=== PATIENT | female | born 1935 | race Caucasian/White ===

== ENCOUNTER → 2020-10-09 | Outpatient (CLI) | payer MEDICARE ==
[2017-07-28 10:56] VITALS: BP 125/52
[~2020-10-09] MED LIST: ASPI-482 PO; ASPI-493 PO; CALC500T54 PO; CHOL200044 PO; DOCU50CA9 PO; FISH1CAP PO; HYDR-2765 PO; IBUP100T7 PO; MAGN400C PO; MULT-658 PO; NAPR220T70 PO
--- NOTE | 2020-10-09 18:55 | RAD ---
EXAM: NM PET/CT SKULL BASE TO MID THIGH EXAM DATE: 10/09/2020 INDICATION: Lung mass RADIOPHARMACEUTICAL: 12.5 mCi of F-18 Fluorodeoxyglucose (FDG) I.V. via the left forearm. TECHNIQUE: Patient weight: 127 pounds. Following at least four-hour fasting, the patient's blood gluc ose was 76 mg/dl. Approximately one and a half hours after administration of FDG, overlapping emissi on scanning was performed from the orbital meatal line through the pelvis. A low-dose CT was perform ed for attenuation correction purposes and anatomic localization. Fused images of PET and CT were rev iewed. Any standardized uptake values (SUV) reported are maximum values within a volume region of in terest, expressed in gm/ml. COMPARISON: Report on a chest CT without IV contrast 08/31/2020 FINDINGS: PET: Left apical spiculated nodule with pleural retraction and associated traction bronchiectasis shows ab normal FDG uptake to max SUV of 5.03. No abnormal FDG uptake in the mediastinum. The background media stinal uptake is 2.44. There is subtle increased FDG uptake at the gastroesophageal junction to max SUV of 3.08. There is otherwise no abnormal FDG uptake identified in the included field of view. For reference, ba ckground uptake in the liver is 2.81. CT: In the head and neck, bilateral carotid calcifications are present. Patient is edentulous and has ful l replacement prostheses. Thyroid shows mild heterogeneity in density but no discrete nodules or mas ses. No cervical adenopathy seen on noncontrast CT. In the chest, upper lobe predominant panlobular emphysema is present, with the irregularly-shaped lef t upper lobe pulmonary nodule measuring approximately 2.2 cm. There is respiratory motion artifact bu t no additional lung nodules are identified. No pneumothorax or pleural effusion. In the abdomen and pelvis, aortic calcification and tortuosity is present. Extensive colonic divertic ulosis is noted. Bones show deformity from an old, mostly healed right parasymphyseal superior and inferior pubic daphne s fracture and degenerative changes in the lumbar spine. IMPRESSION: 1. Left upper lobe pulmonary nodule shows abnormal FDG uptake to max SUV of 5.03 and is suspicious fo r a primary lung malignancy. There is no evidence of advanced locoregional disease or of distant meta stasis. 2. Mild FDG uptake at the gastroesophageal junction is nonspecific and could reflect esophagitis. Rec ommend clinical correlation. Electronically signed by: Rubi Colmenares MD (10/09/2020 6:53 PM) [id number]
== END ==
LOC: PETSC 09:30
PROVIDERS: ATTEND Internal Medicine Critical Care Medicine
DX: R91.8 Other nonspecific abnormal finding of lung field (principal); K57.30 Diverticulosis of large intestine without perforation or abscess without bleeding; J43.1 Panlobular emphysema; M47.816 Spondylosis without myelopathy or radiculopathy, lumbar region
CPT/HCPCS: 78815; A9552

== ENCOUNTER 2020-10-28 07:04 | Inpatient (IN) | payer MEDICARE ==
[~2020-10-28] VITALS: Ht 162.6 cm; Wt 57.6 kg
[2020-10-28] VITALS (24 sets, daily range): BP systolic 107–159; BP diastolic 55–94
[~2020-10-28 07:04] MED LIST changes: +MORPHINE SULFATE 4 MG/ML VIAL. IV PRN
[2020-10-28] MEDS ORDERED: LIDOCAINE WITH 8.4% SOD BICARB 3 ML DISP.SYRIN. ONE ×2 (07:48→12:05)
[2020-10-28 07:56] LABS: BASO % 0 % (0-3); EOS # 0.2 x10^3/uL (0.0-0.7); EOS % 6 % (0-3); HEMATOCRIT 39.7 % (36.0-47.0); HEMOGLOBIN 13.4 g/dL (12.0-15.5); LYMPH # 1.2 x10^3/uL (1.0-4.8); LYMPH % 35 % (24-48); MEAN CORPUSCULAR HEMOGLOBIN 32 pg (25-35); MEAN CORPUSCULAR HGB CONC 34 g/dL (31-37); MEAN CORPUSCULAR VOLUME 95 fL (79-100); MONO # 0.3 x10^3/uL (0.0-1.1); MONO % 10 % (0-9); NEUT # 1.7 x10^3/uL (1.8-7.7); NEUT % 50 % (31-73); PLATELET COUNT 121 x10^3/uL (140-400); RED BLOOD COUNT 4.17 x10^6/uL (3.50-5.40); RED CELL DISTRIBUTION WIDTH 13.3 % (11.5-14.5); WHITE BLOOD COUNT 3.4 x10^3/uL (4.0-11.0)
[2020-10-28 08:05] LABS: PROTHROMBIN TIME PATIENT 12.7 SEC (11.7-14.0)
[2020-10-28] MEDS ORDERED: OXYB5TAB33 PO (08:09)
[2020-10-28] MEDS ORDERED: SIMV10TA15 PO (08:09)
[2020-10-28] MEDS ORDERED: MIDAZOLAM HCL/PF 2 MG/2 ML VIAL. ONE ×2 (08:46→12:15)
[2020-10-28] MEDS ORDERED: fentaNYL PF VIAL 100 MCG/2 ML VIAL ONE ×2 (08:47→12:16)
[2020-10-28] MEDS ORDERED: LIDOCAINE WITH 8.4% SOD BICARB 3 ML DISP.SYRIN. IJ ONE ×2 (09:15→12:45)
[2020-10-28] MEDS ORDERED: MIDAZOLAM HCL/PF 2 MG/2 ML VIAL. IV ONE ×2 (09:15→12:45)
[2020-10-28] MEDS ORDERED: fentaNYL PF VIAL 100 MCG/2 ML VIAL IV ONE ×2 (09:15→12:45)
--- NOTE | 2020-10-28 11:44 | NUR ---
Dr. Whitlock came over to talk with patient and explained that there is a small pneumothorax present and he wants her to have a repeat chest x-ray in 2 hours. Repeat chest x-ray ordered for 1300. Patient is resting in bed and blood pressure and oxygen sats are stable, will continue to monitor.
--- NOTE | 2020-10-28 12:15 | NUR ---
After talking with patient about plan, pt noted to be c/o increasing chest discomfort and cough. Dr Whitlock ordered CXRAY to be done immediately instead of waiting until 1300. Xray showed increasing pneumothorax, decision made by Dr Whitlock to place chest tube. Inpt bed called for and Dr Florentino contacted. TASHA RENTERIA
[2020-10-28] MEDS ORDERED: SENNOSIDES 8.6 MG TABLET PO PRN (14:00)
[2020-10-28] MEDS ORDERED: DOCUSATE SODIUM 100 MG CAPSULE. PO PRN (14:00)
[2020-10-28] MEDS ORDERED: ACETAMINOPHEN 325 MG TABLET. PO PRN (14:00)
[2020-10-28] MEDS ORDERED: ONDANSETRON PF 4 MG/2 ML VIAL. IVP PRN (14:00)
[2020-10-28] MEDS ORDERED: DEXTROSE 50% 25 GM / 50ML DISP.SYRIN. IV PRN (14:00)
[2020-10-28] MEDS: HYDROcodone/APAP 5/325MG 1 TAB TABLET PO PRN ×2 (14:45→21:32)
--- NOTE | 2020-10-28 14:50 | RAD ---
CT-guided biopsy, left upper lobe pulmonary nodule 10/28/2020 10/28/2020 12:45 PM Discussion: The procedure was explained in its entirety to the patient or the patients designated client representative by a member of the treatment team, including a discussion of the risks, benefits and commonly accepted alternatives to the procedure, as well as the expected consequences of no therapy whatsoever. Discussion of the risks included, but was not limited to, those that are most frequent and those that are rare but possibly severe or life-threatening, as well as the possibility of unforeseen complications. All elements of maximal sterile barrier technique including the use of a cap, mask, sterile gown, sterile gloves, large sterile sheet, appropriate hand hygiene, and 2% chlorhexidine for cutaneous antisepsis (or acceptable alternative antiseptic per current guidelines) were followed for this procedure. The patient was placed in the supine position. A timeout procedure was performed. Anterior chest was prepped and draped as described. 1% lidocaine was administered for local anesthesia. Under intermittent CT guidance a 17-gauge needle was advanced into the nodule opacity in left upper lobe. Core biopsy samples were obtained. The needle was removed. No immediate competitions identified. Expected perilesional hemorrhage noted. Patient transferred to the recovery area in stable condition. The procedures performed under conscious sedation including continuous cardiopulmonary monitoring via dedicated sedation nurse. [id number] sedation time: 15 minutes Impression: CT-guided biopsy, left upper lobe nodule PQRS Compliance Statement: One or more of the following individualized dose reduction techniques were utilized for this examination: 1. Automated exposure control 2. Adjustment of the mA and/or kV according to patient size 3. Use of iterative reconstruction technique
--- NOTE | 2020-10-28 14:53 | RAD ---
10/28/2020 12:49 PM Procedure: Left sided thoracostomy tube placement, CT-guided Clinical Indication: LEFT PNUMOTHORAX POST BIOPSY Discussion: The procedure was explained in its entirety to the patient or the patients designated pharmaceutical representative by a member of the treatment team, including a discussion of the risks, benefits and commonly accepted alternatives to the procedure, as well as the expected consequences of no therapy whatsoever. Discussion of the risks included, but was not limited to, those that are most frequent and those that are rare but possibly severe or life-threatening, as well as the possibility of unforeseen complications. All elements of maximal sterile barrier technique including the use of a cap, mask, sterile gown, sterile gloves, large sterile sheet, appropriate hand hygiene, and 2% chlorhexidine for cutaneous antisepsis (or acceptable alternative antiseptic per current guidelines) were followed for this procedure. The left chest was prepped and draped using sterile barrier technique. 1% lidocaine was measured for local anesthesia. Under intermittent CT guidance a 5 Pan[place]ian Yueh needle was advanced to the pleural space. A guidewire was advanced into the pleural space over which following dilatation and 8 Panamanian pigtail drain was placed. Position was confirmed under CT. Air was freely aspirated. The catheter was connected to Pleur-evac device at -20 cm of water. Catheter was secured in place. No immediate complications were identified. The procedures performed under conscious sedation including continuous cardiopulmonary monitoring via dedicated sedation nurse. [id number] sedation time: 13 minutes Impression: CT-guided left thoracostomy tube placement. PQRS Compliance Statement: One or more of the following individualized dose reduction techniques were utilized for this examination: 1. Automated exposure control 2. Adjustment of the mA and/or kV according to patient size 3. Use of iterative reconstruction technique
--- NOTE | 2020-10-28 15:05 | RAD ---
Portable chest x-ray compared to similar exam dated July 27, 2017 for status post lung biopsy. FINDINGS: There is a small left apical pneumothorax. Airspace opacity in left apex may represent smal l focal parenchymal hemorrhage related to the underlying biopsy. Mild fibrotic changes are suggested in the right lung. No large pleural effusion. Heart size within normal limits. Scoliosis. IMPRESSION: 1. Small left apical pneumothorax and focal parenchymal lung hemorrhage. Electronically signed by: Louis Hall MD (10/28/2020 3:02 PM) [id number]
--- NOTE | 2020-10-28 16:04 | RAD ---
Chest single view INDICATION: Chest pain COMPARISON: Chest x-ray of earlier the same day and CT guided lung biopsy images of the same day FINDINGS: The left apical pneumothorax evident postbiopsy has markedly increased in the interval with minimal a ssociated mediastinal rightward bowing. Opacity in the left upper lobe postbiopsy remains present. Stable heart and mediastinal contours aortic tortuosity and calcification. No cardiomegaly. IMPRESSION: Interval marked increase in left post biopsy pneumothorax. Cannot exclude early findings of tension. Patient subsequently underwent an interventional procedure to decompress this pneumothorax. Please see report on the later same day CT guided drainage catheter placement. Electronically signed by: Rubi Colmenares MD (10/28/2020 4:02 PM) [id number]
--- NOTE | 2020-10-28 17:10 | PDOC1 ---
History and Physical Date of Service: DOS: DATE: 10/28/20 TIME: 16:57 Chief Complaint: Chief Complain: Pneumothorax History of Present Illness: HPI: Patient is an 84-year-old female with past medical history of longstanding smoker who came to outpatient radiology for lung biopsy. Patient underwent lung biopsy and subsequently developed a pneumothorax on the left chest. Subsequently a chest tube was placed in the anterior portion of the left side of the chest. Patient tolerated the procedure well and there was no complications. At this point patient only complains of some left-sided chest pain upon deep inspiration. Denies fevers, shortness of breath, abdominal pain, syncope or palpitations. Patient chart reviewed: Showed only admission for syncope. She had neurology and cardio work-up which was all negative and she was discharged home at that time. Past Medical/Surgical History: PMH/PSH: Past medical history: left pulmonary lung nodule, hemorrhoids Past surgical history: Cataract removal, hemorrhoidectomy Allergies: Allergies: Coded Allergies: No Known Drug Allergies (Unverified , 05/26/14) Family History: Family History: Reviewed with no relevant findings Social History: Social History: 1 pack/day smoker for 61 years. Occasional alcohol. Lives with her . Current Medications: Current Medications Current Medications Lidocaine HCl (Buffered Lidocaine 1%) 3 ml STK-MED ONCE .ROUTE ; Start 10/28/20 at 07:48; Stop 10/28/20 at 07:48; Status DC Midazolam HCl (Versed) 2 mg STK-MED ONCE .ROUTE ; Start 10/28/20 at 08:46; Stop 10/28/20 at 08:47; Status DC Fentanyl Citrate (Fentanyl 2ml Vial) 100 mcg STK-MED ONCE .ROUTE ; Start 10/28/20 at 08:47; Stop 10/28/20 at 08:47; Status DC Lidocaine HCl (Buffered Lidocaine 1%) 6 ml 1X ONCE IJ Last administered on 10/28/20at 09:09; Start 10/28/20 at 09:15; Stop 10/28/20 at 09:16; Status DC Midazolam HCl (Versed) 1 mg 1X ONCE IV Last administered on 10/28/20at 09:09; Start 10/28/20 at 09:15; Stop 10/28/20 at 09:16; Status DC Fentanyl Citrate (Fentanyl 2ml Vial) 50 mcg 1X ONCE IV Last administered on 10/28/20at 09:08; Start 10/28/20 at 09:15; Stop 10/28/20 at 09:16; Status DC Lidocaine HCl (Buffered Lidocaine 1%) 3 ml STK-MED ONCE .ROUTE ; Start 10/28/20 at 12:05; Stop 10/28/20 at 12:05; Status DC Midazolam HCl (Versed) 2 mg STK-MED ONCE .ROUTE ; Start 10/28/20 at 12:15; Stop 10/28/20 at 12:16; Status DC Fentanyl Citrate (Fentanyl 2ml Vial) 100 mcg STK-MED ONCE .ROUTE ; Start 10/28/20 at 12:16; Stop 10/28/20 at 12:16; Status DC Lidocaine HCl (Buffered Lidocaine 1%) 6 ml 1X ONCE IJ Last administered on 10/28/20at 12:42; Start 10/28/20 at 12:45; Stop 10/28/20 at 12:46; Status DC Midazolam HCl (Versed) 0.5 mg 1X ONCE IV Last administered on 10/28/20at 12:42; Start 10/28/20 at 12:45; Stop 10/28/20 at 12:46; Status DC Fentanyl Citrate (Fentanyl 2ml Vial) 25 mcg 1X ONCE IV Last administered on 10/28/20at 12:43; Start 10/28/20 at 12:45; Stop 10/28/20 at 12:46; Status DC Sennosides (Senna) 17.2 mg PRN BID PRN PO CONSTIPATION; Start 10/28/20 at 14:00 Docusate Sodium (Colace) 100 mg PRN DAILY PRN PO HARD STOOLS; Start 10/28/20 at 14:00 Ondansetron HCl (Zofran) 4 mg PRN Q6HRS PRN IVP NAUSEA/VOMITING; Start 10/28/20 at 14:00 Dextrose (Dextrose 50%-Water Syringe) 12.5 gm PRN Q15MIN PRN IV SEE COMMENTS; Start 10/28/20 at 14:00 Acetaminophen (Tylenol) 650 mg PRN Q4HRS PRN PO TEMP OVER 100.4F OR MILD PAIN; Start 10/28/20 at 14:00 Enoxaparin Sodium (Lovenox 40mg Syringe) 40 mg Q24H SQ ; Start 10/28/20 at 21:00 Acetaminophen/ Hydrocodone Bitart (Lortab 5/325) 1 tab PRN Q4HRS PRN PO MODERATE PAIN, SEVERE PAIN Last administered on 10/28/20at 14:45; Start 10/28/20 at 14:00 Morphine Sulfate (Morphine Sulfate) 2 mg PRN Q2HR PRN IV SEVERE PAIN 7-10 Last administered on 10/28/20at 14:16; Start 10/28/20 at 04:00; Stop 10/29/20 at 03:59 Active Scripts Active Reported Simvastatin 10 Mg Tablet 1 Tab PO QHS Ditropan Xl (Oxybutynin Chloride) 5 Mg Tab.er.24 1 Tab PO DAILY 30 Days Aleve (Naproxen Sodium) 220 Mg Tablet 220 Mg PO BID Anacin 400-32 Mg Tablet (Aspirin/Caffeine) 1 Each Tablet Unknown Dose PO Magnesium (Magnesium Oxide) 400 Mg Capsule 400 Mg PO Stool Softener (Docusate Sodium) 50 Mg Capsule 50 Mg PO DAILY Centrum Silver Tablet (Multivits-Min/Fa/Lycopene/Lut) 1 Each Tablet 1 Each PO DAILY Calcium (Calcium Carbonate) 500 Mg Tab.chew 500 Mg PO DAILY Fish Oil 1,200 Mg Fish Oil (Fish Oil/Dha/Epa) 1 Each Capsule 1 Each PO DAILY D3-2000 (Cholecalciferol (Vitamin D3)) 2,000 Unit Capsule 1,000 Unit PO DAILY Aspir 81 (Aspirin) 81 Mg Tablet.dr 81 Mg PO DAILY ROS: Review of Systems Review of System REVIEW OF SYSTEMS: GENERAL: Denies weakness SKIN: No bruising, hair changes or rashes. EYES: No blurred, double or loss of vision. NOSE AND THROAT: No history of nosebleeds, hoarseness or sore throat. HEART: No history of palpitations, chest pain or shortness of breath on exertion. LUNGS: Denies cough, hemoptysis, wheezing or shortness of breath. GASTROINTESTINAL: Denies changes in appetite, nausea, vomiting, diarrhea or constipation. GENITOURINARY: No history of frequency, urgency, hesitancy or nocturia. NEUROLOGIC: Denies history of numbness, tingling, or tremor. PSYCHIATRIC: No history of panic, anxiety or depression. ENDOCRINE: No history of heat or cold intolerance, polyuria or polydipsia. EXTREMITIES: Denies joint pain, pain on walking or stiffness. Physical Exam: Vital Signs: Vital Signs Date Time Temp Pulse Resp B/P (MAP) Pulse Ox O2 Delivery O2 Flow Rate FiO2 10/28/20 15:51 16 Room Air 10/28/20 14:36 97.8 66 135/56 (82) 96 97.8 10/28/20 14:16 2.0 Physcial Exam: GEN: No apparent distress. Alert and oriented HEENT: Normal cephalic, atraumatic, external auditory canals are patent EYES: Extraocular muscles are intact, pupil are equally round and reactive to light and accommodation MUSCULOSKELETAL: Well developed , well nourished, good range of motion ENDOCRINE: No thyromegaly was palpated LYMPHATICS: No cervical chain or axillary nodes were noted HEMATOPOIETIC: No bruising NECK: Supple, no JVD, no thyromegaly was noted LUNGS: Clear to auscultation in all lung p[place] without rhonchi or wheezing HEART: RRR, S!, S2 present. Peripheral pulses intact, no obvious murmurs noted ABDOMEN: Soft, nontender. Positive bowel sounds, no organomegaly, normal bowel sounds EXTREMITIES: Without clubbing, cyanosis, or edema. Pedal pulses intact. Negative Homans sign NEUROLOGIC: Normal speech and tone. A&O x 3, moves all extremities, no obvious focal deficits PSYCHIATRIC: Normal affect, normal mood. Stable SKIN: No ulcerations or rashes, good skin turgor, no jaundice VASCULAR: Good capillary refill, neurovascular bundle appears to be intact Labs: Labs: Laboratory Tests Test 10/28/20 07:15 10/28/20 07:45 SARS-CoV-2 Antigen (Rapid) Negative (NEGATIVE) White Blood Count 3.4 x10^3/uL (4.0-11.0) Red Blood Count 4.17 x10^6/uL (3.50-5.40) Hemoglobin 13.4 g/dL (12.0-15.5) Hematocrit 39.7 % (36.0-47.0) Mean Corpuscular Volume 95 fL (79-100) Mean Corpuscular Hemoglobin 32 pg (25-35) Mean Corpuscular Hemoglobin Concent 34 g/dL (31-37) Red Cell Distribution Width 13.3 % (11.5-14.5) Platelet Count 121 x10^3/uL (140-400) Neutrophils (%) (Auto) 50 % (31-73) Lymphocytes (%) (Auto) 35 % (24-48) Monocytes (%) (Auto) 10 % (0-9) Eosinophils (%) (Auto) 6 % (0-3) Basophils (%) (Auto) 0 % (0-3) Neutrophils # (Auto) 1.7 x10^3/uL (1.8-7.7) Lymphocytes # (Auto) 1.2 x10^3/uL (1.0-4.8) Monocytes # (Auto) 0.3 x10^3/uL (0.0-1.1) Eosinophils # (Auto) 0.2 x10^3/uL (0.0-0.7) Basophils # (Auto) 0.0 x10^3/uL (0.0-0.2) Prothrombin Time 12.7 SEC (11.7-14.0) Prothromb Time International Ratio 1.0 (0.8-1.1) Laboratory Tests Test 10/28/20 07:15 10/28/20 07:45 SARS-CoV-2 Antigen (Rapid) Negative (NEGATIVE) White Blood Count 3.4 x10^3/uL (4.0-11.0) Red Blood Count 4.17 x10^6/uL (3.50-5.40) Hemoglobin 13.4 g/dL (12.0-15.5) Hematocrit 39.7 % (36.0-47.0) Mean Corpuscular Volume 95 fL (79-100) Mean Corpuscular Hemoglobin 32 pg (25-35) Mean Corpuscular Hemoglobin Concent 34 g/dL (31-37) Red Cell Distribution Width 13.3 % (11.5-14.5) Platelet Count 121 x10^3/uL (140-400) Neutrophils (%) (Auto) 50 % (31-73) Lymphocytes (%) (Auto) 35 % (24-48) Monocytes (%) (Auto) 10 % (0-9) Eosinophils (%) (Auto) 6 % (0-3) Basophils (%) (Auto) 0 % (0-3) Neutrophils # (Auto) 1.7 x10^3/uL (1.8-7.7) Lymphocytes # (Auto) 1.2 x10^3/uL (1.0-4.8) Monocytes # (Auto) 0.3 x10^3/uL (0.0-1.1) Eosinophils # (Auto) 0.2 x10^3/uL (0.0-0.7) Basophils # (Auto) 0.0 x10^3/uL (0.0-0.2) Prothrombin Time 12.7 SEC (11.7-14.0) Prothromb Time International Ratio 1.0 (0.8-1.1) Images: Images CXR IMPRESSION: 1. Small left apical pneumothorax and focal parenchymal lung hemorrhage. Assessment/Plan Assessment/Plan Left apical pneumothorax status post chest tube placement Acute hypoxia Pulmonary lung nodule concerning for malignancy Admit to medicine for observation Pulmonology consult for chest tube management Ambulation for DVT prophylaxis PT OT Regular diet Full code Discussed with RN and SW Disposition chest x-ray in the morning Surrogate decision maker is the Justifications for Admission Other Justification Pneumothorax VIRAL SLOAN MD Oct 28, 2020 17:10
[2020-10-28] MEDS: ENOXAPARIN 40 MG/0.4 ML SYRINGE. SQ SCH (21:43)
[2020-10-29 03:00] VITALS: BP 117/60
[2020-10-29] MEDS: HYDROcodone/APAP 5/325MG 1 TAB TABLET PO PRN ×2 (06:05→20:24)
[2020-10-29 07:00] VITALS: BP 120/60
--- NOTE | 2020-10-29 08:16 | RAD ---
Single view chest INDICATION: Pneumothorax COMPARISON: 10/28/2020 at 11:55 AM FINDINGS: Interval placement of a pigtail pleural drainage catheter in the left hemithorax. There is marked interval decrease in size of the left pneumothorax evident previously. A small residu al peripheral apical left pneumothorax remains present, maximum depth of 1.3 cm as measured from the parietal pleura to the recently biopsied left upper lobe opacity. Stable heart and mediastinal contours showing aortic calcification and tortuosity. No pleural effusio n. The bony thorax appears intact. Included upper abdomen is unremarkable. IMPRESSION: Marked interval decrease in size of left apical pneumothorax following left pleural pigtail drainage catheter placement. There is a small residual apical pneumothorax. No evidence of tension. Electronically signed by: Rubi Colmenares MD (10/29/2020 8:14 AM) [id number]
--- NOTE | 2020-10-29 08:25 | PDOC ---
PROGRESS NOTES Date of Service: DATE: 10/29/20 TIME: 08:24 Chief Complaint Chief Complaint Images: Images CXR IMPRESSION: 1. Small left apical pneumothorax and focal parenchymal lung hemorrhage. Assessment/Plan Assessment/Plan Left apical pneumothorax status post chest tube placement Marked interval decrease in size of left apical pneumothorax following left pleural pigtail drainage catheter placement. There is a small residual apical pneumothorax. No evidence of tension. 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 Pulmonary lung nodule concerning for malignancy Left upper lobe pulmonary nodule shows abnormal FDG uptake to max SUV of 5.03 and is suspicious for a primary lung malignancy. plan Admit to medicine Pulmonology consult for chest tube management Ambulation for DVT prophylaxis PT OT Regular diet Full code Discussed with RN and SW Disposition chest x-ray in the morning Surrogate decision maker is the 3-25 WILL MONITOR ON TELE DUE TO AGE, COPD, PNEUMOTHORAX Justifications for Admission Justifications for Admission Other Justification Pneumothorax History of Present Illness History of Present Illness Chief Complaint: Chief Complain: Pneumothorax History of Present Illness: HPI: Patient is an 84-year-old female with past medical history of longstanding smoker who came to outpatient radiology for lung biopsy. Patient underwent lung biopsy and subsequently developed a pneumothorax on the left chest. Subsequently a chest tube was placed in the anterior portion of the left side of the chest. Patient tolerated the procedure well and there was no complications. At this point patient only complains of some left-sided chest pain upon deep inspiration. Denies fevers, shortness of breath, abdominal pain, syncope or palpitations. Patient chart reviewed: Showed only admission for syncope. She had neurology and cardio work-up which was all negative and she was discharged home at that time. Past Medical/Surgical History: PMH/PSH: Past medical history: left pulmonary lung nodule, hemorrhoids Past surgical history: Cataract removal, hemorrhoidectomy Allergies: Allergies: Coded Allergies: No Known Drug Allergies (Unverified , 05/26/14) Family History: Family History: Reviewed with no relevant findings Social History: Social History: 1 pack/day smoker for 61 years. Occasional alcohol. Lives with her . Current Medications: Current Medications Current Medications Lidocaine HCl (Buffered Lidocaine 1%) 3 ml STK-MED ONCE .ROUTE ; Start 10/28/20 at 07:48; Stop 10/28/20 at 07:48; Status DC Midazolam HCl (Versed) 2 mg STK-MED ONCE .ROUTE ; Start 10/28/20 at 08:46; Stop 10/28/20 at 08:47; Status DC Fentanyl Citrate (Fentanyl 2ml Vial) 100 mcg STK-MED ONCE .ROUTE ; Start at 08:47; Stop 10/28/20 at 08:47; Status DC Lidocaine HCl (Buffered Lidocaine 1%) 6 ml 1X ONCE IJ Last administered on 10/06 11/25at 09:09; Start 10/28/20 at 09:15; Stop 10/28/20 at 09:16; Status DC Midazolam HCl (Versed) 1 mg 1X ONCE IV Last administered on 10/28/20at 09:09; Start 10/28/20 at 09:15; Stop 10/28/20 at 09:16; Status DC Fentanyl Citrate (Fentanyl 2ml Vial) 50 mcg 1X ONCE IV Last administered on 10/28/20at 09:08; Start 10/28/20 at 09:15; Stop 10/28/20 at 09:16; Status DC Lidocaine HCl (Buffered Lidocaine 1%) 3 ml STK-MED ONCE .ROUTE ; Start 10/28/20 at 12:05; Stop 10/28/20 at 12:05; Status DC Midazolam HCl (Versed) 2 mg STK-MED ONCE .ROUTE ; Start 10/28/20 at 12:15; Stop 10/28/20 at 12:16; Status DC Fentanyl Citrate (Fentanyl 2ml Vial) 100 mcg STK-MED ONCE .ROUTE ; Start 10/28/20 at 12:16; Stop 10/28/20 at 12:16; Status DC Lidocaine HCl (Buffered Lidocaine 1%) 6 ml 1X ONCE IJ Last administered on 10/28/20at 12:42; Start 10/28/20 at 12:45; Stop 10/28/20 at 12:46; Status DC Midazolam HCl (Versed) 0.5 mg 1X ONCE IV Last administered on 10/28/20at 12:42; Start 10/28/20 at 12:45; Stop 10/28/20 at 12:46; Status DC Fentanyl Citrate (Fentanyl 2ml Vial) 25 mcg 1X ONCE IV Last administered on 10/28/20at 12:43; Start 10/28/20 at 12:45; Stop 10/28/20 at 12:46; Status DC Sennosides (Senna) 17.2 mg PRN BID PRN PO CONSTIPATION; Start 10/28/20 at 14:00 Docusate Sodium (Colace) 100 mg PRN DAILY PRN PO HARD STOOLS; Start 10/28/20 at 14:00 Ondansetron HCl (Zofran) 4 mg PRN Q6HRS PRN IVP NAUSEA/VOMITING; Start 10/28/20 at 14:00 Dextrose (Dextrose 50%-Water Syringe) 12.5 gm PRN Q15MIN PRN IV SEE COMMENTS; Start 10/28/20 at 14:00 Acetaminophen (Tylenol) 650 mg PRN Q4HRS PRN PO TEMP OVER 100.4F OR MILD PAIN; Start 10/28/20 at 14:00 Enoxaparin Sodium (Lovenox 40mg Syringe) 40 mg Q24H SQ ; Start 10/28/20 at 21:00 Acetaminophen/ Hydrocodone Bitart (Lortab 5/325) 1 tab PRN Q4HRS PRN PO MODERATE PAIN, SEVERE PAIN Last administered on 10/28/20at 14:45; Start 10/28/20 at 14:00 Morphine Sulfate (Morphine Sulfate) 2 mg PRN Q2HR PRN IV SEVERE PAIN 7-10 Last administered on 10/28/20at 14:16; Start 10/28/20 at 04:00; Stop 10/29/20 at 03:59 Active Scripts Active Reported Simvastatin 10 Mg Tablet 1 Tab PO QHS Ditropan Xl (Oxybutynin Chloride) 5 Mg Tab.er.24 1 Tab PO DAILY 30 Days Aleve (Naproxen Sodium) 220 Mg Tablet 220 Mg PO BID Anacin 400-32 Mg Tablet (Aspirin/Caffeine) 1 Each Tablet Unknown Dose PO Magnesium (Magnesium Oxide) 400 Mg Capsule 400 Mg PO Stool Softener (Docusate Sodium) 50 Mg Capsule 50 Mg PO DAILY Centrum Silver Tablet (Multivits-Min/Fa/Lycopene/Lut) 1 Each Tablet 1 Each PO DAILY Calcium (Calcium Carbonate) 500 Mg Tab.chew 500 Mg PO DAILY Fish Oil 1,200 Mg Fish Oil (Fish Oil/Dha/Epa) 1 Each Capsule 1 Each PO DAILY D3-2000 (Cholecalciferol (Vitamin D3)) 2,000 Unit Capsule 1,000 Unit PO DAILY Aspir 81 (Aspirin) 81 Mg Tablet. 81 Mg PO DAILY ROS: Review of Systems Review of System REVIEW OF SYSTEMS: GENERAL: Denies weakness SKIN: No bruising, hair changes or rashes. EYES: No blurred, double or loss of vision. NOSE AND THROAT: No history of nosebleeds, hoarseness or sore throat. HEART: No history of palpitations, chest pain or shortness of breath on exertion. LUNGS: Denies cough, hemoptysis, wheezing or shortness of breath. GASTROINTESTINAL: Denies changes in appetite, nausea, vomiting, diarrhea or constipation. GENITOURINARY: No history of frequency, urgency, hesitancy or nocturia. NEUROLOGIC: Denies history of numbness, tingling, or tremor. PSYCHIATRIC: No history of panic, anxiety or depression. ENDOCRINE: No history of heat or cold intolerance, polyuria or polydipsia. EXTREMITIES: Denies joint pain, pain on walking or stiffness. Vitals Vitals Vital Signs Date Time Temp Pulse Resp B/P (MAP) Pulse Ox O2 Delivery O2 Flow Rate FiO2 10/29/20 08:21 Nasal Cannula 2.0 10/29/20 07:00 97.3 67 17 120/60 (80) 92 97.3 Physical Exam Physical Exam Physcial Exam: GEN: No apparent distress. Alert and oriented HEENT: Normal cephalic, atraumatic, external auditory canals are patent EYES: Extraocular muscles are intact, pupil are equally round and reactive to light and accommodation MUSCULOSKELETAL: Well developed , well nourished, good range of motion ENDOCRINE: No thyromegaly was palpated LYMPHATICS: No cervical chain or axillary nodes were noted HEMATOPOIETIC: No bruising NECK: Supple, no JVD, no thyromegaly was noted LUNGS: Clear to auscultation in all lung [place] without rhonchi or wheezing HEART: RRR, S!, S2 present. Peripheral pulses intact, no obvious murmurs noted ABDOMEN: Soft, nontender. Positive bowel sounds, no organomegaly, normal bowel sounds EXTREMITIES: Without clubbing, cyanosis, or edema. Pedal pulses intact. Negative Homans sign NEUROLOGIC: Normal speech and tone. A&O x 3, moves all extremities, no obvious focal deficits PSYCHIATRIC: Normal affect, normal mood. Stable SKIN: No ulcerations or rashes, good skin turgor, no jaundice VASCULAR: Good capillary refill, neurovascular bundle appears to be intact Labs LABS [facility] [id number] [place] [address] Test Date: 2017-07-27 Test Time: 11:52:11 Pat Name: MINDY KAUR Department: Room: Gender: F Emergency Management Consultant: : 1935 Requested By: CAREY WILDER Order Number: [id number] Reading MD: Vidya Suresh MD Measurements Intervals [place] Rate: 59 P: 67 ME: 216 QRS: 18 QRSD: 80 T: 38 QT: 434 QTc: 434 Interpretive Statements SINUS RHYTHM possible prior anterseptal infarct Electronically Signed On 07-27-2017 20:05:13 CONTINUOUS IMPROVEMENT ANALYST by Vidya Suresh MD DICTATED and SIGNED BY: VIDYA SURESH MD DATE: 07/27/17 1152 cc: CAREY WILDER MD; ISAK EDWARDS Jr, MD ~ itral Valve MV E Velocity 94.5cm/s MV DECEL TIME 226ms MV A Velocity 122.0cm/s E/A Ratio 0.8 Pulmonary Valve PV Peak Velocity 105.8cm/s Tricuspid Valve TR P. Velocity 243cm/s RAP ESTIMATE 3mmHg TR Peak Gr. 24mmHg RVSP 27mmHg LEFT VENTRICLE The left ventricle is normal size. There is normal left ventricular wall thickness. The left ventricular systolic function is normal and the ejection fraction is within normal range. The Ejection Fraction is >70%. There is normal LV segmental wall motion. RIGHT VENTRICLE The right ventricle is normal size. There is normal right ventricular wall thickness. The right ventricular systolic function is normal. ATRIA The left atrium size is normal. The right atrium size is normal. The interatrial septum is intact with no evidence for an atrial septal defect or patent foramen ovale as noted on 2-D or Doppler imaging. AORTIC VALVE The aortic valve is mildly to moderately sclerotic. The aortic valve is trileaflet. Doppler and Color Flow revealed mild aortic regurgitation. There is no significant aortic valvular stenosis. MITRAL VALVE The mitral valve is moderately thickened. There is no evidence of mitral valve p rolapse. There is no mitral valve stenosis. Doppler and Color Flow revealed no mitral valve regurgitation noted. TRICUSPID VALVE The tricuspid valve is normal in structure and function. Doppler and Color Flow revealed mild tricuspid regurgitation. RVSP 24 mm Hg. There is no tricuspid valve stenosis. PULMONIC VALVE Doppler and Color Flow revealed no pulmonic valvular regurgitation. There is no pulmonic valvular stenosis. GREAT VESSELS The aortic root is normal in size. The ascending aorta is normal in size. The IVC is normal in size and collapses >50% with inspiration. PERICARDIAL EFFUSION There is no pleural effusion. There is no evidence of significant pericardial effusion. Critical Notification Critical Value: No <Conclusion> The left ventricular systolic function is normal and the ejection fraction is within normal range. The Ejection Fraction is >70%. There is normal LV segmental wall motion. Doppler and Color Flow revealed mild aortic regurgitation. Doppler and Color Flow revealed mild tricuspid regurgitation. RVSP 24 mm Hg. Signed by : Vidya Suresh, Electronically Approved : 07/28/2017 10:35:36 DICTATED and SIGNED BY: VIDYA SURESH MD DATE: 07/28/17 1035 CC: CLAUS SUN MD; ANOOP CISNEROS APRN; VIDYA SURESH MD; ISAK EDWARDS Jr, MD ~ T12-L1: This level was not included on the axial images. There is a shallow posterior protrusion in the right lateral recess without significant spinal stenosis. There is mild to moderate narrowing of the right neural foramen from facet and the scoliotic curvature, left neural foramen adequate. L1-L2: There is negligible posterior bulge. Spinal canal is adequate. There is minimal facet degenerative change. Left neural foramen is adequate, minimal narrowing of the right neural foramen. L2-L3: There is a shallow protrusion in right lateral recess superimposed on minimal disc osteophyte complex. There is minimal narrowing of the right lateral recess, otherwise spinal canal adequate. There is mild to moderate buckling of the ligamentum flavum on right, mild facet hypertrophic change. Left neural foramen is adequate. There is moderate to severe narrowing of the more distal right neural foramen, disc osteophyte complex near the proximal right extraforaminal L2 nerve root without displacement. Left neural foramen is adequate. L3-L4: There is moderate to severe facet degenerative change and buckling of the ligamentum flavum. There is a minimal posterior bulge. There is moderate left and mild right lateral recess stenosis, central canal overall adequate. There is mild, right greater than left neural foramina compromise. L4-L5: There is left laminectomy defect, enhancing fibrosis at laminectomy site and also in the left lateral recess laterally and anteriorly. There is mild enhancement about the descending left L5 nerve root. There is also some enhancing fibrosis about the exiting left L4 nerve root, effacement of perineural fat. There is fairly marked narrowing of the more distal left neural foramen by disc osteophyte complex and facet hypertrophic change. Right neural foramen is adequate. L5-S1: There is moderate bilateral facet hypertrophic change and mild buckling of the ligamentum flavum. Spinal canal is overall adequate. Neural foramina are adequate. There is a small Tarlov cyst on the left at the inferior aspect of S1 up to 0.7 cm. IMPRESSION: 1. There is advanced degenerative disc disease at L2-3 andL4-5 and to lesser degree at L5-S1. There is fairly prominent L4-5 endplate edema eccentric to left extending into the left L4 and L5 pedicles. Findings may be reactive in etiology assuming there is no suspicion for infection, no significant fluid signal intensity within the intervertebral disc space as would be more commonly associated infection. There has been left L4 laminectomy with enhancing fibrosis at laminectomy site and in the left lateral recess, also about the descending left L5 nerve root. 2. There is neural foramina compromise as described greatest on the left at L4-5 and on the right at L2-L3. 3. There is levoscoliosis centered upon superior lumbar spine. 4. There is variable lateral recess stenosis as described most notable the left lateral recess at L3-L4. Electronically signed by: Hank Siegel MD (Sep 02, 2014 16:17:22) DICTATED and SIGNED BY: ASA SIEGEL MD DATE: 09/02/14 1617 EXAM DATE: 10/09/2020 INDICATION: Lung mass RADIOPHARMACEUTICAL: 12.5 mCi of F-18 Fluorodeoxyglucose (FDG) I.V. via the left forearm. TECHNIQUE: Patient weight: 127 pounds. Following at least four-hour fasting, the patient's blood glucose was 76 mg/dl. Approximately one and a half hours after administration of FDG, overlapping emission scanning was performed from the orbital meatal line through the pelvis. A low-dose CT was performed for attenuation correction purposes and anatomic localization. Fused images of PET and CT were reviewed. Any standardized uptake values (SUV) reported are maximum values within a volume region of interest, expressed in gm/ml. COMPARISON: Report on a chest CT without IV contrast 08/31/2020 FINDINGS: PET: Left apical spiculated nodule with pleural retraction and associated traction bronchiectasis shows abnormal FDG uptake to max SUV of 5.03. No abnormal FDG uptake in the mediastinum. The background mediastinal uptake is 2.44. There is subtle increased FDG uptake at the gastroesophageal junction to max SUV of 3.08. There is otherwise no abnormal FDG uptake identified in the included field of view. For reference, background uptake in the liver is 2.81. CT: In the head and neck, bilateral carotid calcifications are present. Patient is edentulous and has full replacement prostheses. Thyroid shows mild heterogeneity in density but no discrete nodules or masses. No cervical adenopathy seen on noncontrast CT. In the chest, upper lobe predominant panlobular emphysema is present, with the irregularly-shaped left upper lobe pulmonary nodule measuring approximately 2.2 cm. There is respiratory motion artifact but no additional lung nodules are identified. No pneumothorax or pleural effusion. In the abdomen and pelvis, aortic calcification and tortuosity is present. Extensive colonic diverticulosis is noted. Bones show deformity from an old, mostly healed right parasymphyseal superior and inferior pubic ramus fracture and degenerative changes in the lumbar spine. IMPRESSION: 1. Left upper lobe pulmonary nodule shows abnormal FDG uptake to max SUV of 5.03 and is suspicious for a primary lung malignancy. There is no evidence of advanced locoregional disease or of distant metastasis. 2. Mild FDG uptake at the gastroesophageal junction is nonspecific and could reflect esophagitis. Recommend clinical correlation. Electronically signed by: Victorino Colmenares MD (10/09/2020 6:53 PM) [id number] DICTATED and SIGNED BY: VICTORINO COLMENARES MD DATE: 10/09/20 [id number] PATIENT: MINDY KAUR AACCOUNT: [id number] : 1935 LOCATION: [address] [place] [address] AGE: 84 SEX: F EXAM STATUS: ADM IN ORD. PHYSICIAN: NOHEMI TAVERAS MD REASON: post left lung biopsy in IR PROCEDURE: PORTABLE CHEST 1V Portable chest x-ray compared to similar exam dated July 27, 2017 for status post lung biopsy. FINDINGS: There is a small left apical pneumothorax. Airspace opacity in left apex may represent small focal parenchymal hemorrhage related to the underlying biopsy. Mild fibrotic changes are suggested in the right lung. No large pleural effusion. Heart size within normal limits. Scoliosis. IMPRESSION: 1. Small left apical pneumothorax and focal parenchymal lung hemorrhage. Electronically signed by: Louis Brown MD (10/28/2020 3:02 PM) [id number] DICTATED and SIGNED BY: LOUIS BROWN MD DATE: 10/28/[id number]-guided biopsy, left upper lobe pulmonary nodule 10/28/2020 10/28/2020 12:45 PM Discussion: The procedure was explained in its entirety to the patient or the patients designated medical service representative by a member of the treatment team, including a discussion of the risks, benefits and commonly accepted alternatives to the procedure, as well as the expected consequences of no therapy whatsoever. Discussion of the risks included, but was not limited to, those that are most frequent and those that are rare but possibly severe or life-threatening, as well as the possibility of unforeseen complications. All elements of maximal sterile barrier technique including the use of a cap, mask, sterile gown, sterile gloves, large sterile sheet, appropriate hand hygiene, and 2% chlorhexidine for cutaneous antisepsis (or acceptable alternative antiseptic per current guidelines) were followed for this procedure. The patient was placed in the supine position. A timeout procedure was performed. Anterior chest was prepped and draped as described. 1% lidocaine was administered for local anesthesia. Under intermittent CT guidance a 17-gauge needle was advanced into the nodule opacity in left upper lobe. Core biopsy samples were obtained. The needle was removed. No immediate competitions identified. Expected perilesional hemorrhage noted. Patient transferred to the recovery area in stable condition. The procedures performed under conscious sedation including continuous cardiopulmonary monitoring via dedicated sedation nurse. [id number] sedation time: 15 minutes Impression: CT-guided biopsy, left upper lobe nodule PQRS Compliance Statement: One or more of the following individualized dose reduction techniques were utilized for this examination: 1. Automated exposure control 2. Adjustment of the mA and/or kV according to patient size 3. Use of iterative reconstruction technique DICTATED and SIGNED BY: NOHEMI TAVERAS MD DATE: 10/28/20 [id number] Single view chest INDICATION: Pneumothorax COMPARISON: 10/28/2020 at 11:55 AM FINDINGS: Interval placement of a pigtail pleural drainage catheter in the left hemithorax. There is marked interval decrease in size of the left pneumothorax evident previously. A small residual peripheral apical left pneumothorax remains present, maximum depth of 1.3 cm as measured from the parietal pleura to the recently biopsied left upper lobe opacity. Stable heart and mediastinal contours showing aortic calcification and tortuosity. No pleural effusion. The bony thorax appears intact. Included upper abdomen is unremarkable. IMPRESSION: Marked interval decrease in size of left apical pneumothorax following left pleural pigtail drainage catheter placement. There is a small residual apical p neumothorax. No evidence of tension. Electronically signed by: Victorino Colmenares MD (10/29/2020 8:14 AM) [id number] DICTATED and SIGNED BY: VICTORINO COLMENARES MD DATE: 10/29/20 [id number] 0 Comment Review of Relevant I have reviewed the following items aylin (where applicable) has been applied. Labs Laboratory Tests Test 10/28/20 07:15 10/28/20 07:45 SARS-CoV-2 Antigen (Rapid) Negative (NEGATIVE) White Blood Count 3.4 x10^3/uL (4.0-11.0) Red Blood Count 4.17 x10^6/uL (3.50-5.40) Hemoglobin 13.4 g/dL (12.0-15.5) Hematocrit 39.7 % (36.0-47.0) Mean Corpuscular Volume 95 fL (79-100) Mean Corpuscular Hemoglobin 32 pg (25-35) Mean Corpuscular Hemoglobin Concent 34 g/dL (31-37) Red Cell Distribution Width 13.3 % (11.5-14.5) Platelet Count 121 x10^3/uL (140-400) Neutrophils (%) (Auto) 50 % (31-73) Lymphocytes (%) (Auto) 35 % (24-48) Monocytes (%) (Auto) 10 % (0-9) Eosinophils (%) (Auto) 6 % (0-3) Basophils (%) (Auto) 0 % (0-3) Neutrophils # (Auto) 1.7 x10^3/uL (1.8-7.7) Lymphocytes # (Auto) 1.2 x10^3/uL (1.0-4.8) Monocytes # (Auto) 0.3 x10^3/uL (0.0-1.1) Eosinophils # (Auto) 0.2 x10^3/uL (0.0-0.7) Basophils # (Auto) 0.0 x10^3/uL (0.0-0.2) Prothrombin Time 12.7 SEC (11.7-14.0) Prothromb Time International Ratio 1.0 (0.8-1.1) Medications Current Medications Lidocaine HCl (Buffered Lidocaine 1%) 3 ml STK-MED ONCE .ROUTE ; Start 10/28/20 at 07:48; Stop 10/28/20 at 07:48; Status DC Midazolam HCl (Versed) 2 mg STK-MED ONCE .ROUTE ; Start 10/28/20 at 08:46; Stop 10/28/20 at 08:47; Status DC Fentanyl Citrate (Fentanyl 2ml Vial) 100 mcg STK-MED ONCE .ROUTE ; Start 10/28/20 at 08:47; Stop 10/28/20 at 08:47; Status DC Lidocaine HCl (Buffered Lidocaine 1%) 6 ml 1X ONCE IJ Last administered on 10/28/20at 09:09; Start 10/28/20 at 09:15; Stop 10/28/20 at 09:16; Status DC Midazolam HCl (Versed) 1 mg 1X ONCE IV Last administered on 10/28/20at 09:09; Start 10/28/20 at 09:15; Stop 10/28/20 at 09:16; Status DC Fentanyl Citrate (Fentanyl 2ml Vial) 50 mcg 1X ONCE IV Last administered on 10/28/20at 09:08; Start 10/28/20 at 09:15; Stop 10/28/20 at 09:16; Status DC Lidocaine HCl (Buffered Lidocaine 1%) 3 ml STK-MED ONCE .ROUTE ; Start 10/28/20 at 12:05; Stop 10/28/20 at 12:05; Status DC Midazolam HCl (Versed) 2 mg STK-MED ONCE .ROUTE ; Start 10/28/20 at 12:15; Stop 10/28/20 at 12:16; Status DC Fentanyl Citrate (Fentanyl 2ml Vial) 100 mcg STK-MED ONCE .ROUTE ; Start 10/28/20 at 12:16; Stop 10/28/20 at 12:16; Status DC Lidocaine HCl (Buffered Lidocaine 1%) 6 ml 1X ONCE IJ Last administered on 10/28/20at 12:42; Start 10/28/20 at 12:45; Stop 10/28/20 at 12:46; Status DC Midazolam HCl (Versed) 0.5 mg 1X ONCE IV Last administered on 10/28/20at 12:42; Start 10/28/20 at 12:45; Stop 10/28/20 at 12:46; Status DC Fentanyl Citrate (Fentanyl 2ml Vial) 25 mcg 1X ONCE IV Last administered on 10/28/20at 12:43; Start 10/28/20 at 12:45; Stop 10/28/20 at 12:46; Status DC Sennosides (Senna) 17.2 mg PRN BID PRN PO CONSTIPATION; Start 10/28/20 at 14:00 Docusate Sodium (Colace) 100 mg PRN DAILY PRN PO HARD STOOLS; Start 10/28/20 at 14:00 Ondansetron HCl (Zofran) 4 mg PRN Q6HRS PRN IVP NAUSEA/VOMITING; Start 10/28/20 at 14:00 Dextrose (Dextrose 50%-Water Syringe) 12.5 gm PRN Q15MIN PRN IV SEE COMMENTS; Start 10/28/20 at 14:00 Acetaminophen (Tylenol) 650 mg PRN Q4HRS PRN PO TEMP OVER 100.4F OR MILD PAIN; Start 10/28/20 at 14:00 Enoxaparin Sodium (Lovenox 40mg Syringe) 40 mg Q24H SQ Last administered on 10/28/20at 21:43; Start 10/28/20 at 21:00 Acetaminophen/ Hydrocodone Bitart (Lortab 5/325) 1 tab PRN Q4HRS PRN PO MODERATE PAIN, SEVERE PAIN Last administered on 10/29/20at 06:05; Start 10/28/20 at 14:00 Morphine Sulfate (Morphine Sulfate) 2 mg PRN Q2HR PRN IV SEVERE PAIN 7-10 Last administered on 10/28/20at 14:16; Start 10/28/20 at 04:00; Stop 10/29/20 at 03:59; Status DC Active Scripts Active Reported Simvastatin 10 Mg Tablet 1 Tab PO QHS Ditropan Xl (Oxybutynin Chloride) 5 Mg Tab.er.24 1 Tab PO DAILY 30 Days Aleve (Naproxen Sodium) 220 Mg Tablet 220 Mg PO BID Anacin 400-32 Mg Tablet (Aspirin/Caffeine) 1 Each Tablet Unknown Dose PO Magnesium (Magnesium Oxide) 400 Mg Capsule 400 Mg PO Stool Softener (Docusate Sodium) 50 Mg Capsule 50 Mg PO DAILY Centrum Silver Tablet (Multivits-Min/Fa/Lycopene/Lut) 1 Each Tablet 1 Each PO DAILY Calcium (Calcium Carbonate) 500 Mg Tab.chew 500 Mg PO DAILY Fish Oil 1,200 Mg Fish Oil (Fish Oil/Dha/Epa) 1 Each Capsule 1 Each PO DAILY D3-2000 (Cholecalciferol (Vitamin D3)) 2,000 Unit Capsule 1,000 Unit PO DAILY Aspir 81 (Aspirin) 81 Mg Tablet.dr 81 Mg PO DAILY Vitals/I & O Vital Sign - Last 24 Hours 10/28/20 10/28/20 10/28/20 10/28/20 08:25 08:54 08:59 09:04 Pulse 66 72 67 Resp 13 12 8 Pulse Ox 100 96 97 O2 Delivery Room Air Nasal Cannula Nasal Cannula O2 Flow Rate 2.0 2.0 10/28/20 10/28/20 10/28/20 10/28/20 09:08 09:09 09:19 09:34 Pulse 70 69 64 Resp 8 8 9 14 Pulse Ox 97 97 96 99 O2 Delivery Nasal Cannula Nasal Cannula Room Air Room Air O2 Flow Rate 2.0 2.0 10/28/20 10/28/20 10/28/20 10/28/20 09:49 10:04 10:20 10:35 Pulse 59 62 68 62 Resp 14 11 19 17 Pulse Ox 100 100 100 100 O2 Delivery Room Air Nasal Cannula Nasal Cannula Nasal Cannula O2 Flow Rate 2.0 2.0 2.0 10/28/20 10/28/20 10/28/20 10/28/20 10:50 11:30 12:21 12:26 Pulse 66 75 72 73 Resp 17 17 10 7 Pulse Ox 98 92 94 94 O2 Delivery Nasal Cannula Room Air Nasal Cannula Nasal Cannula O2 Flow Rate 2.0 2.0 2.0 10/28/20 10/28/20 10/28/20 10/28/20 12:30 12:33 12:37 12:43 Pulse 63 64 62 Resp 8 14 15 15 Pulse Ox 99 100 99 95 O2 Delivery Nasal Cannula Nasal Cannula Nasal Cannula Nasal Cannula O2 Flow Rate 2.0 2.0 2.0 2.0 10/28/20 10/28/20 10/28/20 10/28/20 13:00 13:19 13:35 14:16 Pulse 58 60 66 Resp 16 16 16 16 Pulse Ox 100 99 99 O2 Delivery Nasal Cannula Nasal Cannula Nasal Cannula Nasal Cannula O2 Flow Rate 2.0 2.0 2.0 2.0 10/28/20 10/28/20 10/28/20 10/28/20 14:30 14:36 14:45 14:55 Temp 97.8 97.8 Pulse 66 Resp 16 16 16 B/P (MAP) 135/56 (82) Pulse Ox 96 O2 Delivery Room Air Room Air Room Air Room Air 10/28/20 10/28/20 10/28/20 10/28/20 15:51 19:00 20:00 21:32 Temp 98.0 98.0 Pulse 61 Resp 16 20 B/P (MAP) 119/64 (82) Pulse Ox 94 O2 Delivery Room Air Nasal Cannula Room Air Nasal Cannula O2 Flow Rate 2.0 2.0 10/28/20 10/28/20 10/29/20 10/29/20 22:34 23:00 03:00 06:05 Temp 97.9 97.4 97.9 97.4 Pulse 70 60 Resp 20 18 B/P (MAP) 107/55 (72) 117/60 (79) Pulse Ox 95 95 O2 Delivery Nasal Cannula Nasal Cannula Nasal Cannula Nasal Cannula O2 Flow Rate 2.0 2.0 2.0 2.0 10/29/20 10/29/20 07:00 08:21 Temp 97.3 97.3 Pulse 67 Resp 17 B/P (MAP) 120/60 (80) Pulse Ox 92 O2 Delivery Room Air Nasal Cannula O2 Flow Rate 2.0 Intake and Output 10/28/20 10/28/20 10/29/20 15:00 23:00 07:00 Intake Total 580 ml 200 ml Balance 580 ml 200 ml Justicifation of Admission Dx: Justifications for Admission: Justification of Admission Dx: Yes Comments: PNEUMOTHORAX CLAUS SUN MD Oct 29, 2020 08:25
[2020-10-29 08:50] LABS: BASO % 1 % (0-3); EOS # 0.2 x10^3/uL (0.0-0.7); EOS % 4 % (0-3); HEMATOCRIT 39.4 % (36.0-47.0); HEMOGLOBIN 13.3 g/dL (12.0-15.5); LYMPH # 1.1 x10^3/uL (1.0-4.8); LYMPH % 27 % (24-48); MEAN CORPUSCULAR HEMOGLOBIN 32 pg (25-35); MEAN CORPUSCULAR HGB CONC 34 g/dL (31-37); MEAN CORPUSCULAR VOLUME 96 fL (79-100); MONO # 0.4 x10^3/uL (0.0-1.1); MONO % 9 % (0-9); NEUT # 2.3 x10^3/uL (1.8-7.7); NEUT % 59 % (31-73); PLATELET COUNT 113 x10^3/uL (140-400); RED BLOOD COUNT 4.11 x10^6/uL (3.50-5.40); RED CELL DISTRIBUTION WIDTH 13.4 % (11.5-14.5)
--- NOTE | 2020-10-29 09:26 | NUR ---
SW following. Discussed with RN, pt from home with , 2L or room air (RN determining), regular diet, rapid COVID-19 negative. Pt has a chest tube. PT/OT ordered. SW will continue to follow.
[2020-10-29 09:31] LABS: CALCIUM 9.1 mg/dL (8.5-10.1); CREATININE 0.9 mg/dL (0.6-1.0); GFR 59.7; PHOSPHORUS 3.3 mg/dL (2.6-4.7); POTASSIUM 4.4 mmol/L (3.5-5.1)
--- NOTE | 2020-10-29 09:50 | PDOC ---
PULMONARY PROGRESS NOTES DATE: 10/29/20 TIME: 09:50 Vitals Vital Signs Date Time Temp Pulse Resp B/P (MAP) Pulse Ox O2 Delivery O2 Flow Rate FiO2 10/29/20 08:21 Nasal Cannula 2.0 10/29/20 07:00 97.3 67 17 120/60 (80) 92 97.3 Labs Laboratory Tests Test 10/28/20 07:15 10/28/20 07:45 10/29/20 07:00 SARS-CoV-2 Antigen (Rapid) Negative (NEGATIVE) White Blood Count 3.4 x10^3/uL (4.0-11.0) 4.0 x10^3/uL (4.0-11.0) Red Blood Count 4.17 x10^6/uL (3.50-5.40) 4.11 x10^6/uL (3.50-5.40) Hemoglobin 13.4 g/dL (12.0-15.5) 13.3 g/dL (12.0-15.5) Hematocrit 39.7 % (36.0-47.0) 39.4 % (36.0-47.0) Mean Corpuscular Volume 95 fL (79-100) 96 fL (79-100) Mean Corpuscular Hemoglobin 32 pg (25-35) 32 pg (25-35) Mean Corpuscular Hemoglobin Concent 34 g/dL (31-37) 34 g/dL (31-37) Red Cell Distribution Width 13.3 % (11.5-14.5) 13.4 % (11.5-14.5) Platelet Count 121 x10^3/uL (140-400) 113 x10^3/uL (140-400) Neutrophils (%) (Auto) 50 % (31-73) 59 % (31-73) Lymphocytes (%) (Auto) 35 % (24-48) 27 % (24-48) Monocytes (%) (Auto) 10 % (0-9) 9 % (0-9) Eosinophils (%) (Auto) 6 % (0-3) 4 % (0-3) Basophils (%) (Auto) 0 % (0-3) 1 % (0-3) Neutrophils # (Auto) 1.7 x10^3/uL (1.8-7.7) 2.3 x10^3/uL (1.8-7.7) Lymphocytes # (Auto) 1.2 x10^3/uL (1.0-4.8) 1.1 x10^3/uL (1.0-4.8) Monocytes # (Auto) 0.3 x10^3/uL (0.0-1.1) 0.4 x10^3/uL (0.0-1.1) Eosinophils # (Auto) 0.2 x10^3/uL (0.0-0.7) 0.2 x10^3/uL (0.0-0.7) Basophils # (Auto) 0.0 x10^3/uL (0.0-0.2) 0.0 x10^3/uL (0.0-0.2) Prothrombin Time 12.7 SEC (11.7-14.0) Prothromb Time International Ratio 1.0 (0.8-1.1) Sodium Level 143 mmol/L (136-145) Potassium Level 4.4 mmol/L (3.5-5.1) Chloride Level 105 mmol/L (98-107) Carbon Dioxide Level 30 mmol/L (21-32) Anion Gap 8 (6-14) Blood Urea Nitrogen 12 mg/dL (7-20) Creatinine 0.9 mg/dL (0.6-1.0) Estimated GFR (Cockcroft-Gault) 59.7 Glucose Level 70 mg/dL (70-99) Calcium Level 9.1 mg/dL (8.5-10.1) Phosphorus Level 3.3 mg/dL (2.6-4.7) Magnesium Level 2.0 mg/dL (1.8-2.4) Laboratory Tests Test 10/29/20 07:00 White Blood Count 4.0 x10^3/uL (4.0-11.0) Red Blood Count 4.11 x10^6/uL (3.50-5.40) Hemoglobin 13.3 g/dL (12.0-15.5) Hematocrit 39.4 % (36.0-47.0) Mean Corpuscular Volume 96 fL (79-100) Mean Corpuscular Hemoglobin 32 pg (25-35) Mean Corpuscular Hemoglobin Concent 34 g/dL (31-37) Red Cell Distribution Width 13.4 % (11.5-14.5) Platelet Count 113 x10^3/uL (140-400) Neutrophils (%) (Auto) 59 % (31-73) Lymphocytes (%) (Auto) 27 % (24-48) Monocytes (%) (Auto) 9 % (0-9) Eosinophils (%) (Auto) 4 % (0-3) Basophils (%) (Auto) 1 % (0-3) Neutrophils # (Auto) 2.3 x10^3/uL (1.8-7.7) Lymphocytes # (Auto) 1.1 x10^3/uL (1.0-4.8) Monocytes # (Auto) 0.4 x10^3/uL (0.0-1.1) Eosinophils # (Auto) 0.2 x10^3/uL (0.0-0.7) Basophils # (Auto) 0.0 x10^3/uL (0.0-0.2) Sodium Level 143 mmol/L (136-145) Potassium Level 4.4 mmol/L (3.5-5.1) Chloride Level 105 mmol/L (98-107) Carbon Dioxide Level 30 mmol/L (21-32) Anion Gap 8 (6-14) Blood Urea Nitrogen 12 mg/dL (7-20) Creatinine 0.9 mg/dL (0.6-1.0) Estimated GFR (Cockcroft-Gault) 59.7 Glucose Level 70 mg/dL (70-99) Calcium Level 9.1 mg/dL (8.5-10.1) Phosphorus Level 3.3 mg/dL (2.6-4.7) Magnesium Level 2.0 mg/dL (1.8-2.4) Medications Active Scripts Medications Dose Route/Sig Max Daily Dose Days Date Category Simvastatin 10 Mg Tablet 1 Tab PO QHS 10/28/20 Reported Ditropan Xl (Oxybutynin Chloride) 5 Mg Tab.er.24 1 Tab PO DAILY 30 10/28/20 Reported Aleve (Naproxen Sodium) 220 Mg Tablet 220 Mg PO BID 09/02/14 Reported Anacin 400-32 Mg Tablet (Aspirin/Caffeine) 1 Each Tablet Unknown Dose PO 09/02/14 Reported Magnesium (Magnesium Oxide) 400 Mg Capsule 400 Mg PO 09/02/14 Reported Stool Softener (Docusate Sodium) 50 Mg Capsule 50 Mg PO DAILY 08/06/13 Reported Centrum Silver Tablet (Multivits-Min/Fa/Lycopene/Lut) 1 Each Tablet 1 Each PO DAILY 08/06/13 Reported Calcium (Calcium Carbonate) 500 Mg Tab.chew 500 Mg PO DAILY 08/06/13 Reported Fish Oil 1,200 Mg Fish Oil (Fish Oil/Dha/Epa) 1 Each Capsule 1 Each PO DAILY 08/06/13 Reported D3-2000 (Cholecalciferol (Vitamin D3)) 2,000 Unit Capsule 1,000 Unit PO DAILY 08/06/13 Reported Aspir 81 (Aspirin) 81 Mg Tablet.dr 81 Mg PO DAILY 08/06/13 Reported Impression . NOTE DICTATED D/W RN WILL REPEAT CXR IN 3 HOURS THANKS FOLLOW FOR PTX SELMA RAYO MD Oct 29, 2020 09:50
[2020-10-29 11:00] VITALS: BP 131/73
--- NOTE | 2020-10-29 13:46 | CONS ---
DATE OF CONSULTATION: 10/29/2020 PULMONARY CONSULTATION ATTENDING PHYSICIAN: Dr. Sanchez Villela. CONSULTING PHYSICIAN: Selma Sofia MD. REASON FOR CONSULTATION: The patient is seen in pulmonary consultation at the request of Dr. Florentino for pneumothorax management. HISTORY OF PRESENT ILLNESS: The patient is an 84-year-old that has been smoking since 1955, was followed in the office for a pulmonary nodule. She had a repeat CT chest, which revealed persistent spiculated nodule 1.2 cm in size of left upper lobe. The patient underwent a CT-guided biopsy. Subsequently, she had a pneumothorax. She was admitted. Chest tube was placed by interventional radiologist. I was asked to manage the chest tube. Currently, she is not significantly short of breath. She does have some discomfort from the tube herself. There is no air leak on chest tube. The x-ray reveals almost complete resolution of the pneumothorax. PAST MEDICAL HISTORY: Tobacco dependence, COPD, unknown FEV1, recent pulmonary nodule, currently being worked up as indicated above, underwent a needle aspiration. She has had previous cataract removal. FAMILY HISTORY: No family history of lung disorders. SOCIAL HISTORY: Lives with her , occasional use of alcohol. Smokes 1 pack of cigarettes a day. REVIEW OF SYSTEMS: As indicated above, otherwise, a 10-point system was reviewed and negative. PHYSICAL EXAMINATION: VITAL SIGNS: Stable. O2 saturation was greater than 92%. NECK: No subcutaneous emphysema. LUNGS: Clear. No wheezes. CARDIOVASCULAR: Regular rate and rhythm with S1, S2, no S3. ABDOMEN: Soft, nontender, nondistended. EXTREMITIES: No clubbing, cyanosis or edema. LABORATORY DATA: Reviewed. White count was normal. Hemoglobin and hematocrit were noted. Repeat chest x-ray today was reviewed. There is a small apical pneumothorax. IMPRESSION: 1. Expected pneumothorax, status post fine needle aspiration. The patient presented with spiculated mass surrounded by emphysematous changes on CT chest. 2. Tobacco dependent. 3. Chronic obstructive pulmonary disease. 4. Chest pain related to pneumothorax. PLAN: 1. As indicated above. Currently, there is no air leak on chest tube. 2. Discontinue wall suction. Repeat chest x-ray in 3 hours. 3. If in 3 hours, the x-ray has not changed, then we will clamp tube and discontinue chest tube in the a.m. SELMA SOFIA MD DR: Ze JOB#: [id number] / [id number]
--- NOTE | 2020-10-29 13:52 | EKG ---
[facility] [address] [place] [address] Test Date: 2020-10-29 Test Time: 13:51:05 Pat Name: MINDY KAUR Department: Room: 402 1 Gender: F [employer]: RAZA : 1935 Requested By: CLAUS SUN Order Number: [id number] Reading MD: Measurements Intervals [place] Rate: 67 P: 67 MN: 206 QRS: -47 QRSD: 88 T: 42 QT: 404 QTc: 430 Interpretive Statements SINUS RHYTHM ABNORMAL LEFT AXIS DEVIATION LEFT ANTERIOR FASCICULAR BLOCK QRS(T) CONTOUR ABNORMALITY CONSIDER ANTEROSEPTAL MYOCARDIAL DAMAGE ABNORMAL ECG RI6.02 Compared to ECG 07/27/2017 11:52:11 Left-axis deviation now present Left anterior fascicular block now present Myocardial infarct finding no longer present
[2020-10-29 15:00] VITALS: BP 129/69
--- NOTE | 2020-10-29 17:20 | NUR ---
Radiology contacted to see when CXR would be read. They said it would be read soon.
--- NOTE | 2020-10-29 17:40 | RAD ---
XR CHEST 1V History: Chest tube evaluation. Comparison: 10/29/2020, 10/28/2020 Technique: Portable AP chest radiograph. Findings: Tubes/lines: Left chest pigtail pleural catheter. Lungs: Left upper lobe nodule/hematoma. Coarsened interstitial markings. Pleural Spaces: No pneumothorax. Cardiac Silhouette: Ectatic arch. Normal heart size. Pulmonary Vasculature: Unremarkable. Osseous Structures and Other: Senescent spine. Impression: 1. Left chest pleural pigtail catheter with resolution of pneumothorax. Electronically signed by: Jasen Morin MD (10/29/2020 5:38 PM) [facility]
--- NOTE | 2020-10-29 18:19 | NUR ---
Chest tube clamped.
[2020-10-29 19:00] VITALS: BP 116/69
[2020-10-29] MEDS: ENOXAPARIN 40 MG/0.4 ML SYRINGE. SQ SCH (20:20)
[2020-10-29 23:00] VITALS: BP 118/52
[2020-10-30 03:00] VITALS: BP_SYST 136; BP_DIAS 6; BP_DIAS 76
[2020-10-30 07:00] VITALS: BP 131/71
[2020-10-30 07:57] LABS: BASO % 1 % (0-3); EOS # 0.2 x10^3/uL (0.0-0.7); EOS % 5 % (0-3); HEMATOCRIT 39.8 % (36.0-47.0); HEMOGLOBIN 13.7 g/dL (12.0-15.5); LYMPH # 1.1 x10^3/uL (1.0-4.8); LYMPH % 28 % (24-48); MEAN CORPUSCULAR HEMOGLOBIN 33 pg (25-35); MEAN CORPUSCULAR HGB CONC 35 g/dL (31-37); MEAN CORPUSCULAR VOLUME 95 fL (79-100); MONO # 0.4 x10^3/uL (0.0-1.1); MONO % 10 % (0-9); NEUT # 2.2 x10^3/uL (1.8-7.7); NEUT % 56 % (31-73); PLATELET COUNT 118 x10^3/uL (140-400); RED CELL DISTRIBUTION WIDTH 13.1 % (11.5-14.5); WHITE BLOOD COUNT 3.9 x10^3/uL (4.0-11.0)
[2020-10-30 08:13] LABS: CALCIUM 9.1 mg/dL (8.5-10.1); CREATININE 0.8 mg/dL (0.6-1.0); GFR 68.3; POTASSIUM 3.9 mmol/L (3.5-5.1)
--- NOTE | 2020-10-30 08:40 | PDOC ---
PROGRESS NOTES Date of Service: DATE: 10/30/20 TIME: 08:40 Chief Complaint Chief Complaint Images: Images CXR IMPRESSION: 1. Small left apical pneumothorax and focal parenchymal lung hemorrhage. Assessment/Plan Assessment/Plan Left apical pneumothorax status post chest tube placement Marked interval decrease in size of left apical pneumothorax following left pleural pigtail drainage catheter placement. There is a small residual apical pneumothorax. No evidence of tension. 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 Pulmonary lung nodule concerning for malignancy Left upper lobe pulmonary nodule shows abnormal FDG uptake to max SUV of 5.03 and is suspicious for a primary lung malignancy. plan Admit to medicine Pulmonology consult for chest tube management Ambulation for DVT prophylaxis PT OT Regular diet Full code Discussed with RN and SW Disposition chest x-ray in the morning Surrogate decision maker is the 10-29 WILL MONITOR ON TELE DUE TO AGE, COPD, PNEUMOTHORAX 10-[address] D/W RN Justifications for Admission Justifications for Admission Other Justification Pneumothorax History of Present Illness History of Present Illness Chief Complaint: Chief Complain: Pneumothorax History of Present Illness: HPI: Patient is an 84-year-old female with past medical history of longstanding smoker who came to outpatient radiology for lung biopsy. Patient underwent lung biopsy and subsequently developed a pneumothorax on the left chest. Subsequently a chest tube was placed in the anterior portion of the left side of the chest. Patient tolerated the procedure well and there was no complications. At this point patient only complains of some left-sided chest pain upon deep inspiration. Denies fevers, shortness of breath, abdominal pain, syncope or palpitations. Patient chart reviewed: Showed only admission for syncope. She had neurology and cardio work-up which was all negative and she was discharged home at that time. Past Medical/Surgical History: PMH/PSH: Past medical history: left pulmonary lung nodule, hemorrhoids Past surgical history: Cataract removal, hemorrhoidectomy Allergies: Allergies: Coded Allergies: No Known Drug Allergies (Unverified , 05/26/14) Family History: Family History: Reviewed with no relevant findings Social History: Social History: 1 pack/day smoker for 61 years. Occasional alcohol. Lives with her . Current Medications: Current Medications Current Medications Lidocaine HCl (Buffered Lidocaine 1%) 3 ml STK-MED ONCE .ROUTE ; Start 10/28/20 at 07:48; Stop 10/28/20 at 07:48; Status DC Midazolam HCl (Versed) 2 mg STK-MED ONCE .ROUTE ; Start 10/28/20 at 08:46; Stop 10/28/20 at 08:47; Status DC Fentanyl Citrate (Fentanyl 2ml Vial) 100 mcg STK-MED ONCE .ROUTE ; Start 10/28/20 at 08:47; Stop 10/28/20 at 08:47; Status DC Lidocaine HCl (Buffered Lidocaine 1%) 6 ml 1X ONCE IJ Last administered on 10/28/20at 09:09; Start 10/28/20 at 09:15; Stop 10/28/20 at 09:16; Status DC Midazolam HCl (Versed) 1 mg 1X ONCE IV Last administered on 10/28/20at 09:09; Start 10/28/20 at 09:15; Stop 10/28/20 at 09:16; Status DC Fentanyl Citrate (Fentanyl 2ml Vial) 50 mcg 1X ONCE IV Last administered on 10/28/20at 09:08; Start 10/28/20 at 09:15; Stop 10/28/20 at 09:16; Status DC Lidocaine HCl (Buffered Lidocaine 1%) 3 ml STK-MED ONCE .ROUTE ; Start 10/28/20 at 12:05; Stop 10/28/20 at 12:05; Status DC Midazolam HCl (Versed) 2 mg STK-MED ONCE .ROUTE ; Start 10/28/20 at 12:15; Stop 10/28/20 at 12:16; Status DC Fentanyl Citrate (Fentanyl 2ml Vial) 100 mcg STK-MED ONCE .ROUTE ; Start 10/28/20 at 12:16; Stop 10/28/20 at 12:16; Status DC Lidocaine HCl (Buffered Lidocaine 1%) 6 ml 1X ONCE IJ Last administered on 10/28/20at 12:42; Start 10/28/20 at 12:45; Stop 10/28/20 at 12:46; Status DC Midazolam HCl (Versed) 0.5 mg 1X ONCE IV Last administered on 10/28/20at 12:42; Start 10/28/20 at 12:45; Stop 10/28/20 at 12:46; Status DC Fentanyl Citrate (Fentanyl 2ml Vial) 25 mcg 1X ONCE IV Last administered on 10/28/20at 12:43; Start 10/28/20 at 12:45; Stop 10/28/20 at 12:46; Status DC Sennosides (Senna) 17.2 mg PRN BID PRN PO CONSTIPATION; Start 10/28/20 at 14:00 Docusate Sodium (Colace) 100 mg PRN DAILY PRN PO HARD STOOLS; Start 10/28/20 at 14:00 Ondansetron HCl (Zofran) 4 mg PRN Q6HRS PRN IVP NAUSEA/VOMITING; Start 10/28/20 at 14:00 Dextrose (Dextrose 50%-Water Syringe) 12.5 gm PRN Q15MIN PRN IV SEE COMMENTS; Start 10/28/20 at 14:00 Acetaminophen (Tylenol) 650 mg PRN Q4HRS PRN PO TEMP OVER 100.4F OR MILD PAIN; Start 10/28/20 at 14:00 Enoxaparin Sodium (Lovenox 40mg Syringe) 40 mg Q24H SQ ; Start 10/28/20 at 21:00 Acetaminophen/ Hydrocodone Bitart (Lortab 5/325) 1 tab PRN Q4HRS PRN PO MODERATE PAIN, SEVERE PAIN Last administered on 10/28/20at 14:45; Start 10/28/20 at 14:00 Morphine Sulfate (Morphine Sulfate) 2 mg PRN Q2HR PRN IV SEVERE PAIN 7-10 Last administered on 10/28/20at 14:16; Start 10/28/20 at 04:00; Stop 10/29/20 at 03:59 Active Scripts Active Reported Simvastatin 10 Mg Tablet 1 Tab PO QHS Ditropan Xl (Oxybutynin Chloride) 5 Mg Tab.er.24 1 Tab PO DAILY 30 Days Aleve (Naproxen Sodium) 220 Mg Tablet 220 Mg PO BID Anacin 400-32 Mg Tablet (Aspirin/Caffeine) 1 Each Tablet Unknown Dose PO Magnesium (Magnesium Oxide) 400 Mg Capsule 400 Mg PO Stool Softener (Docusate Sodium) 50 Mg Capsule 50 Mg PO DAILY Centrum Silver Tablet (Multivits-Min/Fa/Lycopene/Lut) 1 Each Tablet 1 Each PO DAILY Calcium (Calcium Carbonate) 500 Mg Tab.chew 500 Mg PO DAILY Fish Oil 1,200 Mg Fish Oil (Fish Oil/Dha/Epa) 1 Each Capsule 1 Each PO DAILY D3-2000 (Cholecalciferol (Vitamin D3)) 2,000 Unit Capsule 1,000 Unit PO DAILY Aspir 81 (Aspirin) 81 Mg Tablet. 81 Mg PO DAILY ROS: Review of Systems Review of System REVIEW OF SYSTEMS: GENERAL: Denies weakness SKIN: No bruising, hair changes or rashes. EYES: No blurred, double or loss of vision. NOSE AND THROAT: No history of nosebleeds, hoarseness or sore throat. HEART: No history of palpitations, chest pain or shortness of breath on exertion. LUNGS: Denies cough, hemoptysis, wheezing or shortness of breath. GASTROINTESTINAL: Denies changes in appetite, nausea, vomiting, diarrhea or constipation. GENITOURINARY: No history of frequency, urgency, hesitancy or nocturia. NEUROLOGIC: Denies history of numbness, tingling, or tremor. PSYCHIATRIC: No history of panic, anxiety or depression. ENDOCRINE: No history of heat or cold intolerance, polyuria or polydipsia. EXTREMITIES: Denies joint pain, pain on walking or stiffness. Vitals Vitals Vital Signs Date Time Temp Pulse Resp B/P (MAP) Pulse Ox O2 Delivery O2 Flow Rate FiO2 10/30/20 07:00 97.5 75 16 131/71 (91) Nasal Cannula 95.0 97.5 10/30/20 03:00 94 Physical Exam Physical Exam Physcial Exam: GEN: No apparent distress. Alert and oriented HEENT: Normal cephalic, atraumatic, external auditory canals are patent EYES: Extraocular muscles are intact, pupil are equally round and reactive to light and accommodation MUSCULOSKELETAL: Well developed , well nourished, good range of motion ENDOCRINE: No thyromegaly was palpated LYMPHATICS: No cervical chain or axillary nodes were noted HEMATOPOIETIC: No bruising NECK: Supple, no JVD, no thyromegaly was noted LUNGS: Clear to auscultation in all lung [place] without rhonchi or wheezing HEART: RRR, S!, S2 present. Peripheral pulses intact, no obvious murmurs noted ABDOMEN: Soft, nontender. Positive bowel sounds, no organomegaly, normal bowel sounds EXTREMITIES: Without clubbing, cyanosis, or edema. Pedal pulses intact. Negative Homans sign NEUROLOGIC: Normal speech and tone. A&O x 3, moves all extremities, no obvious focal deficits PSYCHIATRIC: Normal affect, normal mood. Stable SKIN: No ulcerations or rashes, good skin turgor, no jaundice VASCULAR: Good capillary refill, neurovascular bundle appears to be intact General: Alert, Oriented X3, Cooperative, No acute distress Heart: Regular rate Lungs: Clear Abdomen: Soft Extremities: No cyanosis Labs LABS EXAM: XR CHEST 1V INDICATION: Reason: ptx / Spl. Instructions: / History: . TECHNIQUE: Single view COMPARISON: Chest x-ray of 10/29/2020 and 4:21 PM FINDINGS: Left pigtail pleural drainage catheter is redemonstrated projecting over the left upper chest. It appears to have been clamped in the interval. The heart size is normal. The great vessels appear unremarkable. There is no hilar or mediastinal mass. The lungs are hyperlucent and show residual opacity at the left lung apex compatible with resolving post biopsy changes on targeted pulmonary nodule.. There is no pleural effusion or pneumothorax. There are no significant osseous abnormalities. IMPRESSION: No evidence of a recurrent pneumothorax with left chest pleural pigtail catheter clamped. Electronically signed by: Victorino Mi MD (10/30/2020 8:44 AM) [id number] DICTATED and SIGNED BY: VICTORINO MI MD DATE: 10/30/20 [id number] 0 Laboratory Tests Test 10/30/20 07:10 White Blood Count 3.9 x10^3/uL (4.0-11.0) Red Blood Count 4.20 x10^6/uL (3.50-5.40) Hemoglobin 13.7 g/dL (12.0-15.5) Hematocrit 39.8 % (36.0-47.0) Mean Corpuscular Volume 95 fL (79-100) Mean Corpuscular Hemoglobin 33 pg (25-35) Mean Corpuscular Hemoglobin Concent 35 g/dL (31-37) Red Cell Distribution Width 13.1 % (11.5-14.5) Platelet Count 118 x10^3/uL (140-400) Neutrophils (%) (Auto) 56 % (31-73) Lymphocytes (%) (Auto) 28 % (24-48) Monocytes (%) (Auto) 10 % (0-9) Eosinophils (%) (Auto) 5 % (0-3) Basophils (%) (Auto) 1 % (0-3) Neutrophils # (Auto) 2.2 x10^3/uL (1.8-7.7) Lymphocytes # (Auto) 1.1 x10^3/uL (1.0-4.8) Monocytes # (Auto) 0.4 x10^3/uL (0.0-1.1) Eosinophils # (Auto) 0.2 x10^3/uL (0.0-0.7) Basophils # (Auto) 0.0 x10^3/uL (0.0-0.2) Sodium Level 141 mmol/L (136-145) Potassium Level 3.9 mmol/L (3.5-5.1) Chloride Level 105 mmol/L (98-107) Carbon Dioxide Level 28 mmol/L (21-32) Anion Gap 8 (6-14) Blood Urea Nitrogen 13 mg/dL (7-20) Creatinine 0.8 mg/dL (0.6-1.0) Estimated GFR (Cockcroft-Gault) 68.3 Glucose Level 80 mg/dL (70-99) Calcium Level 9.1 mg/dL (8.5-10.1) Comment Review of Relevant I have reviewed the following items aylin (where applicable) has been applied. Labs Laboratory Tests Test 10/29/20 07:00 10/30/20 07:10 White Blood Count 4.0 x10^3/uL (4.0-11.0) 3.9 x10^3/uL (4.0-11.0) Red Blood Count 4.11 x10^6/uL (3.50-5.40) 4.20 x10^6/uL (3.50-5.40) Hemoglobin 13.3 g/dL (12.0-15.5) 13.7 g/dL (12.0-15.5) Hematocrit 39.4 % (36.0-47.0) 39.8 % (36.0-47.0) Mean Corpuscular Volume 96 fL (79-100) 95 fL (79-100) Mean Corpuscular Hemoglobin 32 pg (25-35) 33 pg (25-35) Mean Corpuscular Hemoglobin Concent 34 g/dL (31-37) 35 g/dL (31-37) Red Cell Distribution Width 13.4 % (11.5-14.5) 13.1 % (11.5-14.5) Platelet Count 113 x10^3/uL (140-400) 118 x10^3/uL (140-400) Neutrophils (%) (Auto) 59 % (31-73) 56 % (31-73) Lymphocytes (%) (Auto) 27 % (24-48) 28 % (24-48) Monocytes (%) (Auto) 9 % (0-9) 10 % (0-9) Eosinophils (%) (Auto) 4 % (0-3) 5 % (0-3) Basophils (%) (Auto) 1 % (0-3) 1 % (0-3) Neutrophils # (Auto) 2.3 x10^3/uL (1.8-7.7) 2.2 x10^3/uL (1.8-7.7) Lymphocytes # (Auto) 1.1 x10^3/uL (1.0-4.8) 1.1 x10^3/uL (1.0-4.8) Monocytes # (Auto) 0.4 x10^3/uL (0.0-1.1) 0.4 x10^3/uL (0.0-1.1) Eosinophils # (Auto) 0.2 x10^3/uL (0.0-0.7) 0.2 x10^3/uL (0.0-0.7) Basophils # (Auto) 0.0 x10^3/uL (0.0-0.2) 0.0 x10^3/uL (0.0-0.2) Sodium Level 143 mmol/L (136-145) 141 mmol/L (136-145) Potassium Level 4.4 mmol/L (3.5-5.1) 3.9 mmol/L (3.5-5.1) Chloride Level 105 mmol/L (98-107) 105 mmol/L (98-107) Carbon Dioxide Level 30 mmol/L (21-32) 28 mmol/L (21-32) Anion Gap 8 (6-14) 8 (6-14) Blood Urea Nitrogen 12 mg/dL (7-20) 13 mg/dL (7-20) Creatinine 0.9 mg/dL (0.6-1.0) 0.8 mg/dL (0.6-1.0) Estimated GFR (Cockcroft-Gault) 59.7 68.3 Glucose Level 70 mg/dL (70-99) 80 mg/dL (70-99) Calcium Level 9.1 mg/dL (8.5-10.1) 9.1 mg/dL (8.5-10.1) Phosphorus Level 3.3 mg/dL (2.6-4.7) Magnesium Level 2.0 mg/dL (1.8-2.4) Laboratory Tests Test 10/30/20 07:10 White Blood Count 3.9 x10^3/uL (4.0-11.0) Red Blood Count 4.20 x10^6/uL (3.50-5.40) Hemoglobin 13.7 g/dL (12.0-15.5) Hematocrit 39.8 % (36.0-47.0) Mean Corpuscular Volume 95 fL (79-100) Mean Corpuscular Hemoglobin 33 pg (25-35) Mean Corpuscular Hemoglobin Concent 35 g/dL (31-37) Red Cell Distribution Width 13.1 % (11.5-14.5) Platelet Count 118 x10^3/uL (140-400) Neutrophils (%) (Auto) 56 % (31-73) Lymphocytes (%) (Auto) 28 % (24-48) Monocytes (%) (Auto) 10 % (0-9) Eosinophils (%) (Auto) 5 % (0-3) Basophils (%) (Auto) 1 % (0-3) Neutrophils # (Auto) 2.2 x10^3/uL (1.8-7.7) Lymphocytes # (Auto) 1.1 x10^3/uL (1.0-4.8) Monocytes # (Auto) 0.4 x10^3/uL (0.0-1.1) Eosinophils # (Auto) 0.2 x10^3/uL (0.0-0.7) Basophils # (Auto) 0.0 x10^3/uL (0.0-0.2) Sodium Level 141 mmol/L (136-145) Potassium Level 3.9 mmol/L (3.5-5.1) Chloride Level 105 mmol/L (98-107) Carbon Dioxide Level 28 mmol/L (21-32) Anion Gap 8 (6-14) Blood Urea Nitrogen 13 mg/dL (7-20) Creatinine 0.8 mg/dL (0.6-1.0) Estimated GFR (Cockcroft-Gault) 68.3 Glucose Level 80 mg/dL (70-99) Calcium Level 9.1 mg/dL (8.5-10.1) Medications Current Medications Lidocaine HCl (Buffered Lidocaine 1%) 3 ml STK-MED ONCE .ROUTE ; Start 10/28/20 at 07:48; Stop 10/28/20 at 07:48; Status DC Midazolam HCl (Versed) 2 mg STK-MED ONCE .ROUTE ; Start 10/28/20 at 08:46; Stop 10/28/20 at 08:47; Status DC Fentanyl Citrate (Fentanyl 2ml Vial) 100 mcg STK-MED ONCE .ROUTE ; Start 10/28/20 at 08:47; Stop 10/28/20 at 08:47; Status DC Lidocaine HCl (Buffered Lidocaine 1%) 6 ml 1X ONCE IJ Last administered on 10/28/20at 09:09; Start 10/28/20 at 09:15; Stop 10/28/20 at 09:16; Status DC Midazolam HCl (Versed) 1 mg 1X ONCE IV Last administered on 10/28/20at 09:09; Start 10/28/20 at 09:15; Stop 10/28/20 at 09:16; Status DC Fentanyl Citrate (Fentanyl 2ml Vial) 50 mcg 1X ONCE IV Last administered on 10/28/20at 09:08; Start 10/28/20 at 09:15; Stop 10/28/20 at 09:16; Status DC Lidocaine HCl (Buffered Lidocaine 1%) 3 ml STK-MED ONCE .ROUTE ; Start 10/28/20 at 12:05; Stop 10/28/20 at 12:05; Status DC Midazolam HCl (Versed) 2 mg STK-MED ONCE .ROUTE ; Start 10/28/20 at 12:15; Stop 10/28/20 at 12:16; Status DC Fentanyl Citrate (Fentanyl 2ml Vial) 100 mcg STK-MED ONCE .ROUTE ; Start 10/06 11/25 at 12:16; Stop 10/28/20 at 12:16; Status DC Lidocaine HCl (Buffered Lidocaine 1%) 6 ml 1X ONCE IJ Last administered on at 12:42; Start 10/28/20 at 12:45; Stop 10/28/20 at 12:46; Status DC Midazolam HCl (Versed) 0.5 mg 1X ONCE IV Last administered on 10/28/20at 12:42; Start 10/28/20 at 12:45; Stop 10/28/20 at 12:46; Status DC Fentanyl Citrate (Fentanyl 2ml Vial) 25 mcg 1X ONCE IV Last administered on 10/28/20at 12:43; Start 10/28/20 at 12:45; Stop 10/28/20 at 12:46; Status DC Sennosides (Senna) 17.2 mg PRN BID PRN PO CONSTIPATION; Start 10/28/20 at 14:00 Docusate Sodium (Colace) 100 mg PRN DAILY PRN PO HARD STOOLS; Start 10/28/20 at 14:00 Ondansetron HCl (Zofran) 4 mg PRN Q6HRS PRN IVP NAUSEA/VOMITING; Start 10/28/20 at 14:00 Dextrose (Dextrose 50%-Water Syringe) 12.5 gm PRN Q15MIN PRN IV SEE COMMENTS; Start 10/28/20 at 14:00 Acetaminophen (Tylenol) 650 mg PRN Q4HRS PRN PO TEMP OVER 100.4F OR MILD PAIN; Start 10/28/20 at 14:00 Enoxaparin Sodium (Lovenox 40mg Syringe) 40 mg Q24H SQ Last administered on 10/29/20at 20:20; Start 10/28/20 at 21:00 Acetaminophen/ Hydrocodone Bitart (Lortab 5/325) 1 tab PRN Q4HRS PRN PO MODERATE PAIN, SEVERE PAIN Last administered on 10/29/20at 20:24; Start 10/28/20 at 14:00 Morphine Sulfate (Morphine Sulfate) 2 mg PRN Q2HR PRN IV SEVERE PAIN 7-10 Last administered on 10/28/20at 14:16; Start 10/28/20 at 04:00; Stop 10/29/20 at 03:59; Status DC Albuterol/ Ipratropium (Duoneb) 3 ml RTQID NEB ; Start 10/30/20 at 08:00 Active Scripts Active Reported Simvastatin 10 Mg Tablet 1 Tab PO QHS Ditropan Xl (Oxybutynin Chloride) 5 Mg Tab.er.24 1 Tab PO DAILY 30 Days Aleve (Naproxen Sodium) 220 Mg Tablet 220 Mg PO BID Anacin 400-32 Mg Tablet (Aspirin/Caffeine) 1 Each Tablet Unknown Dose PO Magnesium (Magnesium Oxide) 400 Mg Capsule 400 Mg PO Stool Softener (Docusate Sodium) 50 Mg Capsule 50 Mg PO DAILY Centrum Silver Tablet (Multivits-Min/Fa/Lycopene/Lut) 1 Each Tablet 1 Each PO DAILY Calcium (Calcium Carbonate) 500 Mg Tab.chew 500 Mg PO DAILY Fish Oil 1,200 Mg Fish Oil (Fish Oil/Dha/Epa) 1 Each Capsule 1 Each PO DAILY D3-2000 (Cholecalciferol (Vitamin D3)) 2,000 Unit Capsule 1,000 Unit PO DAILY Aspir 81 (Aspirin) 81 Mg Tablet.dr 81 Mg PO DAILY Vitals/I & O Vital Sign - Last 24 Hours 10/29/20 10/29/20 10/29/20 10/29/20 11:00 15:00 19:00 20:00 Temp 97.3 97.8 98.9 97.3 97.8 98.9 Pulse 66 68 77 Resp 18 18 16 B/P (MAP) 131/73 (92) 129/69 (89) 116/69 (85) Pulse Ox 97 96 95 O2 Delivery Room Air Nasal Cannula Nasal Cannula Room Air O2 Flow Rate 2.0 2.0 10/29/20 10/29/20 10/29/20 10/30/20 20:24 21:24 23:00 03:00 Temp 98.3 97.8 98.3 97.8 Pulse 83 81 Resp 20 20 16 16 B/P (MAP) 118/52 (74) 136/76 (96) Pulse Ox 95 95 92 94 O2 Delivery Room Air Room Air Nasal Cannula Nasal Cannula O2 Flow Rate 2.0 1.0 2.0 2.0 10/30/20 07:00 Temp 97.5 97.5 Pulse 75 Resp 16 B/P (MAP) 131/71 (91) O2 Delivery Nasal Cannula O2 Flow Rate 95.0 Intake and Output 10/29/20 10/29/20 10/30/20 15:00 23:00 07:00 Intake Total 180 ml 380 ml Balance 180 ml 380 ml Justicifation of Admission Dx: Justifications for Admission: Justification of Admission Dx: Yes CLAUS SUN MD Oct 30, 2020 08:40
--- NOTE | 2020-10-30 08:47 | RAD ---
EXAM: XR CHEST 1V INDICATION: Reason: ptx / Spl. Instructions: / History: . TECHNIQUE: Single view COMPARISON: Chest x-ray of 10/29/2020 and 4:21 PM FINDINGS: Left pigtail pleural drainage catheter is redemonstrated projecting over the left upper chest. It cristo ears to have been clamped in the interval. The heart size is normal. The great vessels appear unremarkable. There is no hilar or mediastinal mass. The lungs are hyperlucent and show residual opacity at the left lung apex compatible with resolving p ost biopsy changes on targeted pulmonary nodule.. There is no pleural effusion or pneumothorax. There are no significant osseous abnormalities. IMPRESSION: No evidence of a recurrent pneumothorax with left chest pleural pigtail catheter clamped. Electronically signed by: Rubi Colmenares MD (10/30/2020 8:44 AM) [id number]
[2020-10-30] MEDS: IPRATRPIUM/ALBUTEROL 0.5/2.5MG 3 ML NEBU. NEB SCH ×2 (09:16→11:55)
--- NOTE | 2020-10-30 09:30 | NUR ---
SW following. Discussed with RN, pt from home with , 2L (RN advised she doesn't need this), regular diet. PT/OT recommending home. RN advised no SW needs, anticipates discharge home today with self care. SW will continue to follow.
--- NOTE | 2020-10-30 10:16 | PDOC ---
PULMONARY PROGRESS NOTES DATE: 10/30/20 TIME: 10:16 Vitals Vital Signs Date Time Temp Pulse Resp B/P (MAP) Pulse Ox O2 Delivery O2 Flow Rate FiO2 10/30/20 09:27 97 Nasal Cannula 1.0 10/30/20 07:00 97.5 75 16 131/71 (91) 97.5 Labs Laboratory Tests Test 10/29/20 07:00 10/30/20 07:10 White Blood Count 4.0 x10^3/uL (4.0-11.0) 3.9 x10^3/uL (4.0-11.0) Red Blood Count 4.11 x10^6/uL (3.50-5.40) 4.20 x10^6/uL (3.50-5.40) Hemoglobin 13.3 g/dL (12.0-15.5) 13.7 g/dL (12.0-15.5) Hematocrit 39.4 % (36.0-47.0) 39.8 % (36.0-47.0) Mean Corpuscular Volume 96 fL (79-100) 95 fL (79-100) Mean Corpuscular Hemoglobin 32 pg (25-35) 33 pg (25-35) Mean Corpuscular Hemoglobin Concent 34 g/dL (31-37) 35 g/dL (31-37) Red Cell Distribution Width 13.4 % (11.5-14.5) 13.1 % (11.5-14.5) Platelet Count 113 x10^3/uL (140-400) 118 x10^3/uL (140-400) Neutrophils (%) (Auto) 59 % (31-73) 56 % (31-73) Lymphocytes (%) (Auto) 27 % (24-48) 28 % (24-48) Monocytes (%) (Auto) 9 % (0-9) 10 % (0-9) Eosinophils (%) (Auto) 4 % (0-3) 5 % (0-3) Basophils (%) (Auto) 1 % (0-3) 1 % (0-3) Neutrophils # (Auto) 2.3 x10^3/uL (1.8-7.7) 2.2 x10^3/uL (1.8-7.7) Lymphocytes # (Auto) 1.1 x10^3/uL (1.0-4.8) 1.1 x10^3/uL (1.0-4.8) Monocytes # (Auto) 0.4 x10^3/uL (0.0-1.1) 0.4 x10^3/uL (0.0-1.1) Eosinophils # (Auto) 0.2 x10^3/uL (0.0-0.7) 0.2 x10^3/uL (0.0-0.7) Basophils # (Auto) 0.0 x10^3/uL (0.0-0.2) 0.0 x10^3/uL (0.0-0.2) Sodium Level 143 mmol/L (136-145) 141 mmol/L (136-145) Potassium Level 4.4 mmol/L (3.5-5.1) 3.9 mmol/L (3.5-5.1) Chloride Level 105 mmol/L (98-107) 105 mmol/L (98-107) Carbon Dioxide Level 30 mmol/L (21-32) 28 mmol/L (21-32) Anion Gap 8 (6-14) 8 (6-14) Blood Urea Nitrogen 12 mg/dL (7-20) 13 mg/dL (7-20) Creatinine 0.9 mg/dL (0.6-1.0) 0.8 mg/dL (0.6-1.0) Estimated GFR (Cockcroft-Gault) 59.7 68.3 Glucose Level 70 mg/dL (70-99) 80 mg/dL (70-99) Calcium Level 9.1 mg/dL (8.5-10.1) 9.1 mg/dL (8.5-10.1) Phosphorus Level 3.3 mg/dL (2.6-4.7) Magnesium Level 2.0 mg/dL (1.8-2.4) Laboratory Tests Test 10/30/20 07:10 White Blood Count 3.9 x10^3/uL (4.0-11.0) Red Blood Count 4.20 x10^6/uL (3.50-5.40) Hemoglobin 13.7 g/dL (12.0-15.5) Hematocrit 39.8 % (36.0-47.0) Mean Corpuscular Volume 95 fL (79-100) Mean Corpuscular Hemoglobin 33 pg (25-35) Mean Corpuscular Hemoglobin Concent 35 g/dL (31-37) Red Cell Distribution Width 13.1 % (11.5-14.5) Platelet Count 118 x10^3/uL (140-400) Neutrophils (%) (Auto) 56 % (31-73) Lymphocytes (%) (Auto) 28 % (24-48) Monocytes (%) (Auto) 10 % (0-9) Eosinophils (%) (Auto) 5 % (0-3) Basophils (%) (Auto) 1 % (0-3) Neutrophils # (Auto) 2.2 x10^3/uL (1.8-7.7) Lymphocytes # (Auto) 1.1 x10^3/uL (1.0-4.8) Monocytes # (Auto) 0.4 x10^3/uL (0.0-1.1) Eosinophils # (Auto) 0.2 x10^3/uL (0.0-0.7) Basophils # (Auto) 0.0 x10^3/uL (0.0-0.2) Sodium Level 141 mmol/L (136-145) Potassium Level 3.9 mmol/L (3.5-5.1) Chloride Level 105 mmol/L (98-107) Carbon Dioxide Level 28 mmol/L (21-32) Anion Gap 8 (6-14) Blood Urea Nitrogen 13 mg/dL (7-20) Creatinine 0.8 mg/dL (0.6-1.0) Estimated GFR (Cockcroft-Gault) 68.3 Glucose Level 80 mg/dL (70-99) Calcium Level 9.1 mg/dL (8.5-10.1) Medications Active Scripts Medications Dose Route/Sig Max Daily Dose Days Date Category Simvastatin 10 Mg Tablet 1 Tab PO QHS 10/28/20 Reported Ditropan Xl (Oxybutynin Chloride) 5 Mg Tab.er.24 1 Tab PO DAILY 30 10/28/20 Reported Aleve (Naproxen Sodium) 220 Mg Tablet 220 Mg PO BID 09/02/14 Reported Anacin 400-32 Mg Tablet (Aspirin/Caffeine) 1 Each Tablet Unknown Dose PO 09/02/14 Reported Magnesium (Magnesium Oxide) 400 Mg Capsule 400 Mg PO 09/02/14 Reported Stool Softener (Docusate Sodium) 50 Mg Capsule 50 Mg PO DAILY 08/06/13 Reported Centrum Silver Tablet (Multivits-Min/Fa/Lycopene/Lut) 1 Each Tablet 1 Each PO DAILY 08/06/13 Reported Calcium (Calcium Carbonate) 500 Mg Tab.chew 500 Mg PO DAILY 08/06/13 Reported Fish Oil 1,200 Mg Fish Oil (Fish Oil/Dha/Epa) 1 Each Capsule 1 Each PO DAILY 08/06/13 Reported D3-2000 (Cholecalciferol (Vitamin D3)) 2,000 Unit Capsule 1,000 Unit PO DAILY 08/06/13 Reported Aspir 81 (Aspirin) 81 Mg Tablet.dr 81 Mg PO DAILY 08/06/13 Reported Impression . NOTE DICTATED D/W RN WILL REPEAT CXR IN 3 HOURS THANKS FOLLOW FOR SELMA ROYAL MD Oct 30, 2020 10:16
--- NOTE | 2020-10-30 10:17 | PDOC ---
PULMONARY PROGRESS NOTES DATE: 10/30/20 TIME: 10:16 Subjective Patient not more short of air. On room air Vitals Vital Signs Date Time Temp Pulse Resp B/P (MAP) Pulse Ox O2 Delivery O2 Flow Rate FiO2 10/30/20 09:27 97 Nasal Cannula 1.0 10/30/20 07:00 97.5 75 16 131/71 (91) 97.5 ROS: No Nausea, No Chest Pain, No Abdominal Pain, No Increase Cough General: Alert Lungs: Clear Cardiovascular: S1, S2 Abdomen: Soft Neuro Exam: Alert Extremities: No Edema Skin: Warm Labs Laboratory Tests Test 10/29/20 07:00 10/30/20 07:10 White Blood Count 4.0 x10^3/uL (4.0-11.0) 3.9 x10^3/uL (4.0-11.0) Red Blood Count 4.11 x10^6/uL (3.50-5.40) 4.20 x10^6/uL (3.50-5.40) Hemoglobin 13.3 g/dL (12.0-15.5) 13.7 g/dL (12.0-15.5) Hematocrit 39.4 % (36.0-47.0) 39.8 % (36.0-47.0) Mean Corpuscular Volume 96 fL (79-100) 95 fL (79-100) Mean Corpuscular Hemoglobin 32 pg (25-35) 33 pg (25-35) Mean Corpuscular Hemoglobin Concent 34 g/dL (31-37) 35 g/dL (31-37) Red Cell Distribution Width 13.4 % (11.5-14.5) 13.1 % (11.5-14.5) Platelet Count 113 x10^3/uL (140-400) 118 x10^3/uL (140-400) Neutrophils (%) (Auto) 59 % (31-73) 56 % (31-73) Lymphocytes (%) (Auto) 27 % (24-48) 28 % (24-48) Monocytes (%) (Auto) 9 % (0-9) 10 % (0-9) Eosinophils (%) (Auto) 4 % (0-3) 5 % (0-3) Basophils (%) (Auto) 1 % (0-3) 1 % (0-3) Neutrophils # (Auto) 2.3 x10^3/uL (1.8-7.7) 2.2 x10^3/uL (1.8-7.7) Lymphocytes # (Auto) 1.1 x10^3/uL (1.0-4.8) 1.1 x10^3/uL (1.0-4.8) Monocytes # (Auto) 0.4 x10^3/uL (0.0-1.1) 0.4 x10^3/uL (0.0-1.1) Eosinophils # (Auto) 0.2 x10^3/uL (0.0-0.7) 0.2 x10^3/uL (0.0-0.7) Basophils # (Auto) 0.0 x10^3/uL (0.0-0.2) 0.0 x10^3/uL (0.0-0.2) Sodium Level 143 mmol/L (136-145) 141 mmol/L (136-145) Potassium Level 4.4 mmol/L (3.5-5.1) 3.9 mmol/L (3.5-5.1) Chloride Level 105 mmol/L (98-107) 105 mmol/L (98-107) Carbon Dioxide Level 30 mmol/L (21-32) 28 mmol/L (21-32) Anion Gap 8 (6-14) 8 (6-14) Blood Urea Nitrogen 12 mg/dL (7-20) 13 mg/dL (7-20) Creatinine 0.9 mg/dL (0.6-1.0) 0.8 mg/dL (0.6-1.0) Estimated GFR (Cockcroft-Gault) 59.7 68.3 Glucose Level 70 mg/dL (70-99) 80 mg/dL (70-99) Calcium Level 9.1 mg/dL (8.5-10.1) 9.1 mg/dL (8.5-10.1) Phosphorus Level 3.3 mg/dL (2.6-4.7) Magnesium Level 2.0 mg/dL (1.8-2.4) Laboratory Tests Test 10/30/20 07:10 White Blood Count 3.9 x10^3/uL (4.0-11.0) Red Blood Count 4.20 x10^6/uL (3.50-5.40) Hemoglobin 13.7 g/dL (12.0-15.5) Hematocrit 39.8 % (36.0-47.0) Mean Corpuscular Volume 95 fL (79-100) Mean Corpuscular Hemoglobin 33 pg (25-35) Mean Corpuscular Hemoglobin Concent 35 g/dL (31-37) Red Cell Distribution Width 13.1 % (11.5-14.5) Platelet Count 118 x10^3/uL (140-400) Neutrophils (%) (Auto) 56 % (31-73) Lymphocytes (%) (Auto) 28 % (24-48) Monocytes (%) (Auto) 10 % (0-9) Eosinophils (%) (Auto) 5 % (0-3) Basophils (%) (Auto) 1 % (0-3) Neutrophils # (Auto) 2.2 x10^3/uL (1.8-7.7) Lymphocytes # (Auto) 1.1 x10^3/uL (1.0-4.8) Monocytes # (Auto) 0.4 x10^3/uL (0.0-1.1) Eosinophils # (Auto) 0.2 x10^3/uL (0.0-0.7) Basophils # (Auto) 0.0 x10^3/uL (0.0-0.2) Sodium Level 141 mmol/L (136-145) Potassium Level 3.9 mmol/L (3.5-5.1) Chloride Level 105 mmol/L (98-107) Carbon Dioxide Level 28 mmol/L (21-32) Anion Gap 8 (6-14) Blood Urea Nitrogen 13 mg/dL (7-20) Creatinine 0.8 mg/dL (0.6-1.0) Estimated GFR (Cockcroft-Gault) 68.3 Glucose Level 80 mg/dL (70-99) Calcium Level 9.1 mg/dL (8.5-10.1) Medications Active Scripts Medications Dose Route/Sig Max Daily Dose Days Date Category Simvastatin 10 Mg Tablet 1 Tab PO QHS 10/28/20 Reported Ditropan Xl (Oxybutynin Chloride) 5 Mg Tab.er.24 1 Tab PO DAILY 30 10/28/20 Reported Aleve (Naproxen Sodium) 220 Mg Tablet 220 Mg PO BID 09/02/14 Reported Anacin 400-32 Mg Tablet (Aspirin/Caffeine) 1 Each Tablet Unknown Dose PO 09/02/14 Reported Magnesium (Magnesium Oxide) 400 Mg Capsule 400 Mg PO 09/02/14 Reported Stool Softener (Docusate Sodium) 50 Mg Capsule 50 Mg PO DAILY 08/06/13 Reported Centrum Silver Tablet (Multivits-Min/Fa/Lycopene/Lut) 1 Each Tablet 1 Each PO DAILY 08/06/13 Reported Calcium (Calcium Carbonate) 500 Mg Tab.chew 500 Mg PO DAILY 08/06/13 Reported Fish Oil 1,200 Mg Fish Oil (Fish Oil/Dha/Epa) 1 Each Capsule 1 Each PO DAILY 08/06/13 Reported D3-2000 (Cholecalciferol (Vitamin D3)) 2,000 Unit Capsule 1,000 Unit PO DAILY 08/06/13 Reported Aspir 81 (Aspirin) 81 Mg Tablet.dr 81 Mg PO DAILY 08/06/13 Reported Impression . IMPRESSION: 1. Expected pneumothorax, status post fine needle aspiration. The patient presented with spiculated mass surrounded by emphysematous changes on CT chest. 2. Tobacco dependent. 3. Chronic obstructive pulmonary disease. 4. Chest pain related to pneumothorax. 5. Status post FNA Plan . Updated 10/30 Chest x-ray reviewed no pneumothorax Discontinue chest tube Discharge home today Follow-up with Dr. Richey next week in the office Follow-up on pathology report 1. As indicated above. Currently, there is no air leak on chest tube. 2. Discontinue wall suction. Repeat chest x-ray in 3 hours. 3. If in 3 hours, the x-ray has not changed, then we will clamp tube and discontinue chest tube in the a.m. SELMA RAYO MD Oct 30, 2020 10:17
[2020-10-30 11:00] VITALS: BP 116/64
--- NOTE | 2020-10-30 12:06 | NUR ---
Appt set with Dr. Richey for 11/11/20 @ [id number].
--- NOTE | 2020-10-30 12:56 | PDOC3 ---
Discharge Summary Date of Admission: Oct 28, 2020 Date of Discharge: Oct 30, 2020 Follow-Up: Other ([facility]) Admitting Diagnosis comment: Chief Complaint Chief Complaint Images: Images CXR IMPRESSION: 1. Small left apical pneumothorax and focal parenchymal lung hemorrhage. Assessment/Plan Assessment/Plan Left apical pneumothorax status post chest tube placement Marked interval decrease in size of left apical pneumothorax following left pleural pigtail drainage catheter placement. There is a small residual apical pneumothorax. No evidence of tension. 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 Pulmonary lung nodule concerning for malignancy Left upper lobe pulmonary nodule shows abnormal FDG uptake to max SUV of 5.03 and is suspicious for a primary lung malignancy. plan Admit to medicine Pulmonology consult for chest tube management Ambulation for DVT prophylaxis PT OT Regular diet Full code Discussed with RN and SW Disposition chest x-ray in the morning Surrogate decision maker is the 10-29 WILL MONITOR ON TELE DUE TO AGE, COPD, PNEUMOTHORAX 10-[address], OUT Chest x-ray reviewed no pneumothorax Discontinue chest tube Discharge home today Follow-up with Dr. Richey next week in the office Follow-up on pathology report D/C PLANNING 34 MIN D/W RN Justifications for Admission Justifications for Admission Other Justification Pneumothorax History of Present Illness History of Present Illness Chief Complaint: Chief Complain: Pneumothorax History of Present Illness: HPI: Patient is an 84-year-old female with past medical history of longstanding smoker who came to outpatient radiology for lung biopsy. Patient underwent lung biopsy and subsequently developed a pneumothorax on the left chest. Subsequently a chest tube was placed in the anterior portion of the left side of the chest. Patient tolerated the procedure well and there was no complications. At this point patient only complains of some left-sided chest pain upon deep inspiration. Denies fevers, shortness of breath, abdominal pain, syncope or palpitations. Patient chart reviewed: Showed only admission for syncope. She had neurology and cardio work-up which was all negative and she was discharged home at that time. Past Medical/Surgical History: PMH/PSH: Past medical history: left pulmonary lung nodule, hemorrhoids Past surgical history: Cataract removal, hemorrhoidectomy Allergies: Allergies: Coded Allergies: No Known Drug Allergies (Unverified , 05/26/14) Family History: Family History: Reviewed with no relevant findings Social History: Social History: 1 pack/day smoker for 61 years. Occasional alcohol. Lives with her . Current Medications: Current Medications Current Medications Lidocaine HCl (Buffered Lidocaine 1%) 3 ml STK-MED ONCE .ROUTE ; Start 10/28/20 at 07:48; Stop 10/28/20 at 07:48; Status DC Midazolam HCl (Versed) 2 mg STK-MED ONCE .ROUTE ; Start 10/28/20 at 08:46; Stop 10/28/20 at 08:47; Status DC Fentanyl Citrate (Fentanyl 2ml Vial) 100 mcg STK-MED ONCE .ROUTE ; Start 10/28/20 at 08:47; Stop 10/28/20 at 08:47; Status DC Lidocaine HCl (Buffered Lidocaine 1%) 6 ml 1X ONCE IJ Last administered on 10/28/20at 09:09; Start 10/28/20 at 09:15; Stop 10/28/20 at 09:16; Status DC Midazolam HCl (Versed) 1 mg 1X ONCE IV Last administered on 10/28/20at 09:09; Start 10/28/20 at 09:15; Stop 10/28/20 at 09:16; Status DC Fentanyl Citrate (Fentanyl 2ml Vial) 50 mcg 1X ONCE IV Last administered on 10/28/20at 09:08; Start 10/28/20 at 09:15; Stop 10/28/20 at 09:16; Status DC Lidocaine HCl (Buffered Lidocaine 1%) 3 ml STK-MED ONCE .ROUTE ; Start 10/28/20 at 12:05; Stop 10/28/20 at 12:05; Status DC Midazolam HCl (Versed) 2 mg STK-MED ONCE .ROUTE ; Start 10/28/20 at 12:15; Stop 10/28/20 at 12:16; Status DC Fentanyl Citrate (Fentanyl 2ml Vial) 100 mcg STK-MED ONCE .ROUTE ; Start 10/28/20 at 12:16; Stop 10/28/20 at 12:16; Status DC Lidocaine HCl (Buffered Lidocaine 1%) 6 ml 1X ONCE IJ Last administered on 10/28/20at 12:42; Start 10/28/20 at 12:45; Stop 10/28/20 at 12:46; Status DC Midazolam HCl (Versed) 0.5 mg 1X ONCE IV Last administered on 10/28/20at 12:42; Start 10/28/20 at 12:45; Stop 10/28/20 at 12:46; Status DC Fentanyl Citrate (Fentanyl 2ml Vial) 25 mcg 1X ONCE IV Last administered on 10/28/20at 12:43; Start 10/28/20 at 12:45; Stop 10/28/20 at 12:46; Status DC Sennosides (Senna) 17.2 mg PRN BID PRN PO CONSTIPATION; Start 10/28/20 at 14:00 Docusate Sodium (Colace) 100 mg PRN DAILY PRN PO HARD STOOLS; Start 10/28/20 at 14:00 Ondansetron HCl (Zofran) 4 mg PRN Q6HRS PRN IVP NAUSEA/VOMITING; Start 10/28/20 at 14:00 Dextrose (Dextrose 50%-Water Syringe) 12.5 gm PRN Q15MIN PRN IV SEE COMMENTS; Start 10/28/20 at 14:00 Acetaminophen (Tylenol) 650 mg PRN Q4HRS PRN PO TEMP OVER 100.4F OR MILD PAIN; Start 10/28/20 at 14:00 Enoxaparin Sodium (Lovenox 40mg Syringe) 40 mg Q24H SQ ; Start 10/28/20 at 21:00 Acetaminophen/ Hydrocodone Bitart (Lortab 5/325) 1 tab PRN Q4HRS PRN PO MODERAT E PAIN, SEVERE PAIN Last administered on 10/28/20at 14:45; Start 10/28/20 at 14:00 Morphine Sulfate (Morphine Sulfate) 2 mg PRN Q2HR PRN IV SEVERE PAIN 7-10 Last administered on 10/28/20at 14:16; Start 10/28/20 at 04:00; Stop 10/29/20 at 03:59 Active Scripts Active Reported Simvastatin 10 Mg Tablet 1 Tab PO QHS Ditropan Xl (Oxybutynin Chloride) 5 Mg Tab.er.24 1 Tab PO DAILY 30 Days Aleve (Naproxen Sodium) 220 Mg Tablet 220 Mg PO BID Anacin 400-32 Mg Tablet (Aspirin/Caffeine) 1 Each Tablet Unknown Dose PO Magnesium (Magnesium Oxide) 400 Mg Capsule 400 Mg PO Stool Softener (Docusate Sodium) 50 Mg Capsule 50 Mg PO DAILY Centrum Silver Tablet (Multivits-Min/Fa/Lycopene/Lut) 1 Each Tablet 1 Each PO DAILY Calcium (Calcium Carbonate) 500 Mg Tab.chew 500 Mg PO DAILY Fish Oil 1,200 Mg Fish Oil (Fish Oil/Dha/Epa) 1 Each Capsule 1 Each PO DAILY D3-2000 (Cholecalciferol (Vitamin D3)) 2,000 Unit Capsule 1,000 Unit PO DAILY Aspir 81 (Aspirin) 81 Mg Tablet.dr 81 Mg PO DAILY ROS: Review of Systems Review of System REVIEW OF SYSTEMS: GENERAL: Denies weakness SKIN: No bruising, hair changes or rashes. EYES: No blurred, double or loss of vision. NOSE AND THROAT: No history of nosebleeds, hoarseness or sore throat. HEART: No history of palpitations, chest pain or shortness of breath on exertion. LUNGS: Denies cough, hemoptysis, wheezing or shortness of breath. GASTROINTESTINAL: Denies changes in appetite, nausea, vomiting, diarrhea or constipation. GENITOURINARY: No history of frequency, urgency, hesitancy or nocturia. NEUROLOGIC: Denies history of numbness, tingling, or tremor. PSYCHIATRIC: No history of panic, anxiety or depression. ENDOCRINE: No history of heat or cold intolerance, polyuria or polydipsia. EXTREMITIES: Denies joint pain, pain on walking or stiffness. Vitals Vitals Vital Signs Date Time Temp Pulse Resp B/P (MAP) Pulse Ox O2 Delivery O2 Flow Rate FiO2 10/30/20 07:00 97.5 75 16 131/71 (91) Nasal Cannula 95.0 97.5 10/30/20 03:00 94 Physical Exam Physical Exam Physcial Exam: GEN: No apparent distress. Alert and oriented HEENT: Normal cephalic, atraumatic, external auditory canals are patent EYES: Extraocular muscles are intact, pupil are equally round and reactive to light and accommodation MUSCULOSKELETAL: Well developed , well nourished, good range of motion ENDOCRINE: No thyromegaly was palpated LYMPHATICS: No cervical chain or axillary nodes were noted HEMATOPOIETIC: No bruising NECK: Supple, no JVD, no thyromegaly was noted LUNGS: Clear to auscultation in all lung [place] without rhonchi or wheezing HEART: RRR, S!, S2 present. Peripheral pulses intact, no obvious murmurs noted ABDOMEN: Soft, nontender. Positive bowel sounds, no organomegaly, normal bowel sounds EXTREMITIES: Without clubbing, cyanosis, or edema. Pedal pulses intact. Negative Homans sign NEUROLOGIC: Normal speech and tone. A&O x 3, moves all extremities, no obvious focal deficits PSYCHIATRIC: Normal affect, normal mood. Stable SKIN: No ulcerations or rashes, good skin turgor, no jaundice VASCULAR: Good capillary refill, neurovascular bundle appears to be intact General: Alert, Oriented X3, Cooperative, No acute distress Heart: Regular rate Lungs: Clear Abdomen: Soft Extremities: No cyanosis Labs LABS EXAM: XR CHEST 1V INDICATION: Reason: ptx / Spl. Instructions: / History: . TECHNIQUE: Single view COMPARISON: Chest x-ray of 10/29/2020 and 4:21 PM FINDINGS: Left pigtail pleural drainage catheter is redemonstrated projecting over the left upper chest. It appears to have been clamped in the interval. The heart size is normal. The great vessels appear unremarkable. There is no hilar or mediastinal mass. The lungs are hyperlucent and show residual opacity at the left lung apex compatible with resolving post biopsy changes on targeted pulmonary nodule.. There is no pleural effusion or pneumothorax. There are no significant osseous abnormalities. IMPRESSION: No evidence of a recurrent pneumothorax with left chest pleural pigtail catheter clamped. Electronically signed by: Victorino Colmenares MD (10/30/2020 8:44 AM) [id number] DICTATED and SIGNED BY: VICTORINO COLMENARES MD DATE: 10/30/20 [id number] Brief Hospital Course Ms. Rosas is a 84 old [sex] who presented with [ ] CONDITION AT DISCHARGE: Improved Discharge Medications Current Medications Lidocaine HCl (Buffered Lidocaine 1%) 3 ml STK-MED ONCE .ROUTE ; Start 10/28/20 at 07:48; Stop 10/28/20 at 07:48; Status DC Midazolam HCl (Versed) 2 mg STK-MED ONCE .ROUTE ; Start 10/28/20 at 08:46; Stop 10/28/20 at 08:47; Status DC Fentanyl Citrate (Fentanyl 2ml Vial) 100 mcg STK-MED ONCE .ROUTE ; Start 10/28/20 at 08:47; Stop 10/28/20 at 08:47; Status DC Lidocaine HCl (Buffered Lidocaine 1%) 6 ml 1X ONCE IJ Last administered on 10/28/20at 09:09; Start 10/28/20 at 09:15; Stop 10/28/20 at 09:16; Status DC Midazolam HCl (Versed) 1 mg 1X ONCE IV Last administered on 10/28/20at 09:09; Start 10/28/20 at 09:15; Stop 10/28/20 at 09:16; Status DC Fentanyl Citrate (Fentanyl 2ml Vial) 50 mcg 1X ONCE IV Last administered on 10/28/20at 09:08; Start 10/28/20 at 09:15; Stop 10/28/20 at 09:16; Status DC Lidocaine HCl (Buffered Lidocaine 1%) 3 ml STK-MED ONCE .ROUTE ; Start 10/28/20 at 12:05; Stop 10/28/20 at 12:05; Status DC Midazolam HCl (Versed) 2 mg STK-MED ONCE .ROUTE ; Start 10/28/20 at 12:15; Stop 10/28/20 at 12:16; Status DC Fentanyl Citrate (Fentanyl 2ml Vial) 100 mcg STK-MED ONCE .ROUTE ; Start 10/28/20 at 12:16; Stop 10/28/20 at 12:16; Status DC Lidocaine HCl (Buffered Lidocaine 1%) 6 ml 1X ONCE IJ Last administered on 10/28/20at 12:42; Start 10/28/20 at 12:45; Stop 10/28/20 at 12:46; Status DC Midazolam HCl (Versed) 0.5 mg 1X ONCE IV Last administered on 10/28/20at 12:42; Start 10/28/20 at 12:45; Stop 10/28/20 at 12:46; Status DC Fentanyl Citrate (Fentanyl 2ml Vial) 25 mcg 1X ONCE IV Last administered on 10/28/20at 12:43; Start 10/28/20 at 12:45; Stop 10/28/20 at 12:46; Status DC Sennosides (Senna) 17.2 mg PRN BID PRN PO CONSTIPATION; Start 10/28/20 at 14:00 Docusate Sodium (Colace) 100 mg PRN DAILY PRN PO HARD STOOLS; Start 10/28/20 at 14:00 Ondansetron HCl (Zofran) 4 mg PRN Q6HRS PRN IVP NAUSEA/VOMITING; Start 10/28/20 at 14:00 Dextrose (Dextrose 50%-Water Syringe) 12.5 gm PRN Q15MIN PRN IV SEE COMMENTS; Start 10/28/20 at 14:00 Acetaminophen (Tylenol) 650 mg PRN Q4HRS PRN PO TEMP OVER 100.4F OR MILD PAIN; Start 10/28/20 at 14:00 Enoxaparin Sodium (Lovenox 40mg Syringe) 40 mg Q24H SQ Last administered on 10/29/20at 20:20; Start 10/28/20 at 21:00 Acetaminophen/ Hydrocodone Bitart (Lortab 5/325) 1 tab PRN Q4HRS PRN PO MODERATE PAIN, SEVERE PAIN Last administered on 10/29/20at 20:24; Start 10/28/20 at 14:00 Morphine Sulfate (Morphine Sulfate) 2 mg PRN Q2HR PRN IV SEVERE PAIN 7-10 Last administered on 10/28/20at 14:16; Start 10/28/20 at 04:00; Stop 10/29/20 at 03:59; Status DC Albuterol/ Ipratropium (Duoneb) 3 ml RTQID NEB Last administered on 10/30/20at 11:55; Start 10/30/20 at 08:00 Active Scripts Active Reported Simvastatin 10 Mg Tablet 1 Tab PO QHS Ditropan Xl (Oxybutynin Chloride) 5 Mg Tab.er.24 1 Tab PO DAILY 30 Days Aleve (Naproxen Sodium) 220 Mg Tablet 220 Mg PO BID Anacin 400-32 Mg Tablet (Aspirin/Caffeine) 1 Each Tablet Unknown Dose PO Magnesium (Magnesium Oxide) 400 Mg Capsule 400 Mg PO Stool Softener (Docusate Sodium) 50 Mg Capsule 50 Mg PO DAILY Centrum Silver Tablet (Multivits-Min/Fa/Lycopene/Lut) 1 Each Tablet 1 Each PO DAILY Calcium (Calcium Carbonate) 500 Mg Tab.chew 500 Mg PO DAILY Fish Oil 1,200 Mg Fish Oil (Fish Oil/Dha/Epa) 1 Each Capsule 1 Each PO DAILY D3-2000 (Cholecalciferol (Vitamin D3)) 2,000 Unit Capsule 1,000 Unit PO DAILY Aspir 81 (Aspirin) 81 Mg Tablet.dr 81 Mg PO DAILY Vital Signs Vital Signs Date Time Temp Pulse Resp B/P (MAP) Pulse Ox O2 Delivery O2 Flow Rate FiO2 10/30/20 11:55 92 Room Air 10/30/20 11:00 98.2 73 18 116/64 (81) 1.0 98.2 Labs Laboratory Tests Test 10/29/20 07:00 10/30/20 07:10 White Blood Count 4.0 x10^3/uL (4.0-11.0) 3.9 x10^3/uL (4.0-11.0) Red Blood Count 4.11 x10^6/uL (3.50-5.40) 4.20 x10^6/uL (3.50-5.40) Hemoglobin 13.3 g/dL (12.0-15.5) 13.7 g/dL (12.0-15.5) Hematocrit 39.4 % (36.0-47.0) 39.8 % (36.0-47.0) Mean Corpuscular Volume 96 fL (79-100) 95 fL (79-100) Mean Corpuscular Hemoglobin 32 pg (25-35) 33 pg (25-35) Mean Corpuscular Hemoglobin Concent 34 g/dL (31-37) 35 g/dL (31-37) Red Cell Distribution Width 13.4 % (11.5-14.5) 13.1 % (11.5-14.5) Platelet Count 113 x10^3/uL (140-400) 118 x10^3/uL (140-400) Neutrophils (%) (Auto) 59 % (31-73) 56 % (31-73) Lymphocytes (%) (Auto) 27 % (24-48) 28 % (24-48) Monocytes (%) (Auto) 9 % (0-9) 10 % (0-9) Eosinophils (%) (Auto) 4 % (0-3) 5 % (0-3) Basophils (%) (Auto) 1 % (0-3) 1 % (0-3) Neutrophils # (Auto) 2.3 x10^3/uL (1.8-7.7) 2.2 x10^3/uL (1.8-7.7) Lymphocytes # (Auto) 1.1 x10^3/uL (1.0-4.8) 1.1 x10^3/uL (1.0-4.8) Monocytes # (Auto) 0.4 x10^3/uL (0.0-1.1) 0.4 x10^3/uL (0.0-1.1) Eosinophils # (Auto) 0.2 x10^3/uL (0.0-0.7) 0.2 x10^3/uL (0.0-0.7) Basophils # (Auto) 0.0 x10^3/uL (0.0-0.2) 0.0 x10^3/uL (0.0-0.2) Sodium Level 143 mmol/L (136-145) 141 mmol/L (136-145) Potassium Level 4.4 mmol/L (3.5-5.1) 3.9 mmol/L (3.5-5.1) Chloride Level 105 mmol/L (98-107) 105 mmol/L (98-107) Carbon Dioxide Level 30 mmol/L (21-32) 28 mmol/L (21-32) Anion Gap 8 (6-14) 8 (6-14) Blood Urea Nitrogen 12 mg/dL (7-20) 13 mg/dL (7-20) Creatinine 0.9 mg/dL (0.6-1.0) 0.8 mg/dL (0.6-1.0) Estimated GFR (Cockcroft-Gault) 59.7 68.3 Glucose Level 70 mg/dL (70-99) 80 mg/dL (70-99) Calcium Level 9.1 mg/dL (8.5-10.1) 9.1 mg/dL (8.5-10.1) Phosphorus Level 3.3 mg/dL (2.6-4.7) Magnesium Level 2.0 mg/dL (1.8-2.4) Laboratory Tests Test 10/30/20 07:10 White Blood Count 3.9 x10^3/uL (4.0-11.0) Red Blood Count 4.20 x10^6/uL (3.50-5.40) Hemoglobin 13.7 g/dL (12.0-15.5) Hematocrit 39.8 % (36.0-47.0) Mean Corpuscular Volume 95 fL (79-100) Mean Corpuscular Hemoglobin 33 pg (25-35) Mean Corpuscular Hemoglobin Concent 35 g/dL (31-37) Red Cell Distribution Width 13.1 % (11.5-14.5) Platelet Count 118 x10^3/uL (140-400) Neutrophils (%) (Auto) 56 % (31-73) Lymphocytes (%) (Auto) 28 % (24-48) Monocytes (%) (Auto) 10 % (0-9) Eosinophils (%) (Auto) 5 % (0-3) Basophils (%) (Auto) 1 % (0-3) Neutrophils # (Auto) 2.2 x10^3/uL (1.8-7.7) Lymphocytes # (Auto) 1.1 x10^3/uL (1.0-4.8) Monocytes # (Auto) 0.4 x10^3/uL (0.0-1.1) Eosinophils # (Auto) 0.2 x10^3/uL (0.0-0.7) Basophils # (Auto) 0.0 x10^3/uL (0.0-0.2) Sodium Level 141 mmol/L (136-145) Potassium Level 3.9 mmol/L (3.5-5.1) Chloride Level 105 mmol/L (98-107) Carbon Dioxide Level 28 mmol/L (21-32) Anion Gap 8 (6-14) Blood Urea Nitrogen 13 mg/dL (7-20) Creatinine 0.8 mg/dL (0.6-1.0) Estimated GFR (Cockcroft-Gault) 68.3 Glucose Level 80 mg/dL (70-99) Calcium Level 9.1 mg/dL (8.5-10.1) Allergies Allergies Coded Allergies Type Severity Reaction Last Updated Verified No Known Drug Allergies 05/26/14 No Disposition/Orders: D/C to Home Justicifation of Admission Dx: Justifications for Admission: Justification of Admission Dx: Yes CLAUS SUN MD Oct 30, 2020 12:56
[2020-10-30] MEDS ORDERED: DOCU-153 PO (12:59)
[2020-10-30] MEDS ORDERED: ACET325T21 PO (12:59)
--- NOTE | 2020-10-30 13:00 | DISCH ---
DISCHARGE INSTRUCTIONS Condition on Discharge Condition on Discharge: Stable Activity After Discharge Activity Instructions for Disc: Activity as tolerated, Avoid exertion Other activity instructions: No lifting more than 10 lbs. Bathing Instructions: Shower-keep dressing dry Lifting Instructions after Dis: No heavy lifting, No pulling or pushing, Do not lift >10 pounds Exercise Instruction after Dis: Progress as tolerated Driving Instructions after Dis: Do not drive, Do not drive today Weight Bearing Status after Di: No restrictions Diet after Discharge Diet after Discharge: Cardiac, Regular Diet Texture: Regular Liquid Texture: Thin Liquid Swallowing Supervision: None needed Wound Incision Care Wound/Incision Care: Ice to area for comfort Other wound/incision instructi: No baths or submerging site in water for 1 week. May shower 10/29/20. Wound Care Equipment: Dressings Contacting the [facility] after DC Call your doctor for: If your condition worsens Follow-Up Follow Up With: Dr. Sofia Treatment/Equipment after DC Adaptive Equipment Issued: None Comment: Left upper chest Chest Tube CLAUS SUN MD Oct 30, 2020 13:00
--- NOTE | 2020-10-30 14:03 | NUR ---
Pt. discharged to home, verbalized understanding of discharge instructions. L chest drsg CDI.
== END 2020-10-30 14:05 | disposition home or self-care (01) | DRG 199 ==
LOC: INTRAD 07:04 → 4 NORTH 12:22
PROVIDERS: ADMIT Internal Medicine; ATTEND Internal Medicine Pulmonary Disease
PROC: 0W9B00Z Drainage of Left Pleural Cavity with Drainage Device, Open Approach (ICD-10-PCS; principal; 2020-10-28)
PROC: 0BBG3ZX Excision of Left Upper Lung Lobe, Percutaneous Approach, Diagnostic (ICD-10-PCS; 2020-10-28)
DX: J93.83 Other pneumothorax (principal); J96.01 Acute respiratory failure with hypoxia; C34.92 Malignant neoplasm of unspecified part of left bronchus or lung; F17.210 Nicotine dependence, cigarettes, uncomplicated; J44.9 Chronic obstructive pulmonary disease, unspecified; M51.36 Other intervertebral disc degeneration, lumbar region; R91.1 Solitary pulmonary nodule; Z51.5 Encounter for palliative care; Z79.82 Long term (current) use of aspirin; Z98.49 Cataract extraction status, unspecified eye; Z20.822 Contact with and (suspected) exposure to COVID-19
CPT/HCPCS: 32408; 32557; 36415; 71045; 80048; 83735; 84100; 85025; 85610; 87426; 93005; 94640; 99152; A4215; C1892; C1894; J1650; J2250; J2270; J3010; J3490; U0003; 97110-GP; 97116-GP; 97530-GP; G0378

== ENCOUNTER → 2021-05-14 | Outpatient (CLI) | payer MEDICARE ==
[~2021-05-14] MED LIST changes: +ACET325T21 PO; +DOCU-148 PO; -MORPHINE SULFATE 4 MG/ML VIAL. IV PRN; +OXYB5TAB33 PO; +SIMV10TA15 PO
--- NOTE | 2021-05-21 14:10 | RAD ---
EXAM: PET/CT SKULL BASE THROUGH MID THIGH. HISTORY: Lung cancer. TECHNIQUE: CT of the skull base through the mid thighs was performed for the purposes of attenuation correction. 10.9 mCi F-18 fluorodeoxyglucose were administered intravenously. Blood glucose level at the time of administration was 99 mg/dL. After an uptake period, positron emission tomography of the skull base through the mid thighs was performed. The PET and CT data were fused and interpreted in co mbination on a dedicated workstation. COMPARISON: 10/09/2020. FINDINGS: The nodule within the left upper lobe has decreased in size and is now scarlike. It soft ti ssue density portion measures 1.3 x 0.7 cm as compared with 1.5 x 1.4 cm. It is now barely detectable by PET. Maximum SUV is 2.2. There are no hypermetabolic mediastinal lymph nodes. There is no hyperme tabolism elsewhere suggestive of metastatic disease. Additional CT findings include, moderate to severe sigmoid diverticulosis. There is a small hiatal he rnia. There are atherosclerotic calcifications of the coronary arteries. 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 Cerebral atrophy is mild to moderate for patient age. There are changes of bilateral cataract surgery. Centrilobular emphysema is moderate. IMPRESSION: 1. Response to therapy. The left upper lobe nodule has decreased in size and now demonstrates barely detectable hypermetabolism. No evidence of local or distant metastatic disease. 2. Additional CT findings as above. Electronically signed by: Spencer Osorio MD (05/21/2021 2:08 PM) [id number]
== END ==
LOC: PETSC 09:34
PROVIDERS: ATTEND Radiology Radiation Oncology
DX: C34.12 Malignant neoplasm of upper lobe, left bronchus or lung (principal); R91.1 Solitary pulmonary nodule; J43.2 Centrilobular emphysema; K57.30 Diverticulosis of large intestine without perforation or abscess without bleeding; K44.9 Diaphragmatic hernia without obstruction or gangrene; I25.10 Atherosclerotic heart disease of native coronary artery without angina pectoris; G31.9 Degenerative disease of nervous system, unspecified
CPT/HCPCS: 78815; A9552